=== PATIENT | male | born 1950 | race Caucasian/White ===

== ENCOUNTER → 2020-06-16 13:23 | Outpatient (BNVA) | payer MEDICARE, OTHER, SELFPAY | PROVIDERS: PCP Internal Medicine; Visit Provider Internal Medicine | DX: I25.10 Atherosclerotic heart disease of native coronary artery without angina pectoris (principal); I44.7 Left bundle-branch block, unspecified; I47.1 Supraventricular tachycardia; I48.0 Paroxysmal atrial fibrillation; I95.0 Idiopathic hypotension; Z79.01 Long term (current) use of anticoagulants; Z79.899 Other long term (current) drug therapy; I25.2 Old myocardial infarction; Z95.5 Presence of coronary angioplasty implant and graft | CPT/HCPCS: 99212 ==

== ENCOUNTER → 2020-10-19 09:18 | Outpatient (REF) | payer MEDICARE, OTHER, SELFPAY ==
--- NOTE | 2020-10-19 10:53 | ECG_ITS ---
Hook-up date: 2020-10-19 09:55:00 Duration: 47:05:00 Test Indications: ANGINA, LBBB, PVC Medications: 75701 QRS complexes 8939 Ventricular ectopics which represent 13 % of total QRS comp. 724 Supraventricular ectopics which represent 1 % of total QRS comp. * Paced QRS complexs which represent % of total QRS comp. VENTRICULAR ECTOPY 8489 Isolated 1729 Bigeminal Cycles 222 Couplets 2 Runs 6 Beats in Runs 3 Beats LONGEST at 98 BPM at 00:31:37 2020-10-20 3 Beats FASTEST at 98 BPM at 00:31:37 2020-10-20 SUPRAVENTRICULAR ECTOPY 682 Isolated 14 Couplets 4 Runs 14 Beats in Runs 5 Beats LONGEST at 90 BPM at 20:52:23 2020-10-19 3 Beats FASTEST at 100 BPM at 01:34:28 2020-10-20 HEART RATES 39 MIN at 07:23:02 2020-10-20 53 AVG 73 MAX at 10:00:42 2020-10-19 LONGEST RR 1.9360 secs at 06:08:57 2020-10-20 S-T LEVELS Channel 1 - 128 mm at 09:55:00 2020-10-19 - 128 mm at 09:55:00 2020-10-19 Channel 2 - 128 mm at 09:55:00 2020-10-19 - 128 mm at 09:55:00 2020-10-19 Channel 3 - 128 mm at 02:91:41 -- - 128 mm at 02:91:41 Underlying rhythm is sinus; Average rate 53/min with range 39-73/min; Frequent Premature ventricular complexes - 13% of total beats; variable morphology; mostly isolated, some couplets, bigeminy, longest run 3 beats; Occasional supraventricular ectopy; mostly isolated; longest run 5 beats; Chest pressure in patient dairy correlate with sinus Referred By: Delmy Ackerman Overread By: DELMY ACKERMAN
== END ==
LOC: HO.CARD 09:18
PROVIDERS: PCP Internal Medicine; Visit Provider Internal Medicine
DX: I25.119 Atherosclerotic heart disease of native coronary artery with unspecified angina pectoris (principal); I44.7 Left bundle-branch block, unspecified; I47.1 Supraventricular tachycardia; I48.0 Paroxysmal atrial fibrillation; I95.0 Idiopathic hypotension; Z79.01 Long term (current) use of anticoagulants; Z79.899 Other long term (current) drug therapy
CPT/HCPCS: 93005; 93226; 99212

== ENCOUNTER → 2020-10-22 07:40 | Outpatient (REF) | payer MEDICARE, OTHER, SELFPAY ==
--- NOTE | ~2020-10-22 | NM_ITS ---
Myocardial perfusion study Indication: Angina to evaluate for myocardial ischemia Technique: The patient was brought in for a Lexiscan perfusion study on 10/22/2020. Patient performed low-level exercise and was injected 0.4 mg of Lexiscan intravenously. Within a minute of injection, 30 mCi of sestamibi was given intravenously. Images were obtained using the SPECT gamma camera interlaced with the gating device. Images were obtained in supine position. Resting perfusion study was performed on 10/23/2020. Patient was administered 30 mCi of sestamibi intravenously at rest. Images were then obtained in supine position. Images obtained with and without CT attenuation. Total DLP 84 mGy-cm. Images were processed with the software and compared side to side in short axis, horizontal long axis and vertical long axis views. Findings: The stress perfusion study showed non attenuated images show moderately reduced uptake in the apex, moderately reduced uptake in the septum and the septum of the LV myocardium. Of the LV myocardium. Remainder is normally perfused. Attenuation corrected shows. The gated study shows normal LV systolic function with calculated LVEF of 60%. LV cavity is mildly dilated size. The gated study shows normal wall thickening and contraction of segments. Resting study shows normalize uptake on attenuated corrected the septum as well as distal septum and apex of the LV myocardium . Gating at rest reveals normal systolic wall motion with ejection fraction at 63%. The findings are consistent with septal and apical ischemia most likely in LAD territory. NM/NM maryam perf SPECT rest & str Impression: 1. Myocardial perfusion imaging study shows septal and apical ischemia 2. Gated LVEF is 60% 3. Transient ischemic dilatation present EKG is nondiagnostic for ischemia
--- NOTE | 2020-10-22 07:44 | CA_ITS ---
Acquisition Time: 2020-10-22 08:40:19 Total Exercise Time: 00:02:00 Test Indications: Abnormal ECG Medications: APIXABAN ATORVASTATIN METOPROLOL OMEPRAZOLE SL NITRO NEEDED Protocol: LEXISCAN Max HR: 093 BPM 62% of Pred: 149 BPM Max BP: 180/100 mmHG Max Work Load: 1.0 METS Pharmacological stress test using Lexiscan while sitting. Reports epigastric burning followed by chest thightness. Sx reversed with Aminophyline 75 mg IV. EKG with LBBB and PVC's non-diagnostic for ischemia. Normotensive response to test. Test reviewed with Dr. Dockery. Referred By: Addi Dockery Overread By: Malaika Beck NP
--- NOTE | 2020-10-22 07:44 | CA_ITS ---
Transthoracic Echocardiogram Patient (Last, First, Middle): Donavan iKm H Gender: Male Date of : 1950 Age: 70 Procedure Date: 10/22/2020 Procedure Type: Transthoracic Echocardiogram Location: OP Height: 177.8 cm Weight: 90.72 kg BSA: 2.09 m2 Heart Rate: bpm BP: 124 / 74 mmHg Bench Inspector: TOSHIA Referring MD: Addi Dockery MD [facility] Demonstrator: Arley Davey MD Symptoms: I20.9 - Angina pectoris, unspecified Study Quality: Fair ECG Rhythm: Sinus Conclusions: - 1. Low normal LV systolic function with LVEF of 50-55% with grade 1 diastolic dysfunction 2. Mild aortic and mitral regurgitation 3. Normal RV systolic pressure 4. No pericardial effusion Findings Procedure Information Contrast agent, definity, is being given per protocol without apparent complications. The patient receives contrast. Left Ventricle Normal left ventricular cavity size. There is normal left ventricular wall thickness. The left ventricular systolic function is low normal. The visually estimated ejection fraction is between 50-55%. There is paradoxical septal motion consistent with a left bundle branch block. Spectral Doppler is indicative of an impaired relaxation filling pattern. E/E prime ratio is <8, consistent with normal filling pressures. Evidence suggests grade I (mild) diastolic dysfunction. Right Ventricle Normal right ventricular cavity size and systolic function. Atria The left atrium is likely dilated. There is no evidence of interatrial shunt. The right atrium is normal in size. Aortic Valve The aortic valve was not well visualized. There is mild calcification of the aortic valve. There is no aortic valve stenosis. There is mild aortic valve regurgitation. Mitral Valve Normal mitral valve structure and function. There is mild mitral valve regurgitation. There is no mitral valve stenosis. Pulmonic Valve The pulmonic valve was not well visualized. Tricuspid Valve Likely normal tricuspid valve structure and function. There is mild tricuspid valve regurgitation. The right ventricular systolic pressure is normal. The right ventricular systolic pressure is 35 mmHg. There is no evidence of pulmonary hypertension. Great Vessels All visible segments of the aorta are normal in size. The pulmonary artery was not well visualized. Venous The inferior vena cava is normal in size and collapses greater than 50% with inspiration. Pericardium/Pleural There is no evidence of pericardial effusion. Prior Study Comparison Changes noted compared to prior study dated: 08/19/2019. LV systolic function is marginally reduced Measurements M-Mode Liner Measurements Normals - Women/Men AOV Cusps: 2.40 1.5-2.6 cm/m2 2D Linear Measurements IVSd: 1.25 0.6-0.9/0.6-1.0 cm LVIDd: 5.50 3.9-5.3/4.2-5.9 cm LVIDd Index: 2.63 2.4-3.2/2.2-3.1 cm/m2 LVIDs: 4.76 2.0-3.6 cm LVPWd: 1.01 0.7-1.1 cm Ao Root: 3.60 2.1-3.5 cm LA Diam: 3.80 2.7-3.8/3.0-4.0 cm LAIDs Index: 1.82 1.5-2.3 cm/m2 LV Mass: 312.95 67-162/88-224 g LV Mass Index: 149.74 43-95/49-115 g/m2 LVOT Diam: 2.00 3.0+(-)1.3 cm Mitral Valve MV Pk E: 0.56 MV PK A: 0.81 MV Decel Time: 273.00 E/A: 0.70 E'Lateral: 8.38 E'Medial: 5.00 E/E' Med: 11.10 E/E' Lat: 6.60 PHT: 80.00 MVA PHT: 2.75 Decel [place]: 2.04 Aortic Valve AoV Pk Robb: 1.37 AoV Pk Grad: 8.00 AI Pk Robb: 5.04 AI [place]: 1.81 LVOT LVOT Pk Robb: 0.95 LVOT Mn Robb: 0.65 LVOT VTI: 0.24 LVOT Pk Grad: 4.00 LVOT Mn Grad: 2.00 LVOT Diam: 2.00 LVOT Area: 3.14 Diastolic Function MV Pk E: 0.56 MV Pk A: 0.81 E/A: 0.70 E'Medial: 5.00 E/E' Med: 11.10 E' Laterial: 8.38 E/E' Lat: 6.60 Tricuspid Valve TR Pk Robb: 2.81 TR Pk Grad: 32.00 RA Press: 3.00 RVSP: 35.00 Great Vessels Aorta Ao Root-2D: 3.60 2.0-3.7 cm Ao Asc: 3.70 2.1-3.4 cm Ao Arch: 2.80 Pulmonary Valve PV Pk Robb: 1.02 Peak PV Grad: 4.00 Updated in Other Vendor System with Status of Final Arley Davey MD electronically signed on 10/22/2020 1:59:08 PM with status of Final
== END ==
LOC: HO.CARD 07:40
PROVIDERS: Visit Provider Internal Medicine
DX: I20.9 Angina pectoris, unspecified (principal)
CPT/HCPCS: 78452; 93017; 93306; A9500; J0280; J2785; Q9957

== ENCOUNTER 2020-10-28 09:11 | Outpatient (REF) | payer MEDICARE, OTHER, SELFPAY ==
[2020-10-28 10:54] LABS: Hematocrit 40.3 % (42-52); Hemoglobin 13.9 g/dl (14.0-18.0); Mean Corpuscular HGB Conc 34.5 g/dl (31.0-36.0); Mean Corpuscular Hemoglobin 33.7 pg (27.0-33.0); Mean Corpuscular Volume 97.8 fL (80-98); Mean Platelet Volume 11.8 fL (9.4-12.4); Platelet Count 125 X10*3/uL (160-400); Red Blood Count 4.12 X10*6/uL (4.60-5.80); Red Cell Distribution Width 13.4 % (11.0-16.0); White Blood Count 6.5 X10*3/uL (4.8-10.8)
[2020-10-28 10:55] LABS: INTERNATIONAL NORM RATIO 1.5 (0.9-1.1); Prothrombin Time 18.2 SEC (10.8-13.0)
[2020-10-28 11:00] LABS: Anion Gap 10 (12-20); Carbon Dioxide 31 mmol/L (22-29); Chloride 106 mmol/L (96-108); Estimated Glomerular Filt Rate > 60; Glucose Random 171 mg/dL (60-115); Potassium 4.7 mmol/L (3.3-5.1); Sodium 142 mmol/L (135-145)
[2020-10-28 11:03] LABS: Blood Urea Nitrogen 20 mg/dL (9-16); Calcium 8.9 mg/dL (8.4-10.2)
== END 2020-10-28 09:12 | disposition home or self-care (01) ==
LOC: HO.LAB 09:11
PROVIDERS: PCP Internal Medicine; Visit Provider Internal Medicine
DX: I25.119 Atherosclerotic heart disease of native coronary artery with unspecified angina pectoris (principal); I44.7 Left bundle-branch block, unspecified; I48.0 Paroxysmal atrial fibrillation; I47.1 Supraventricular tachycardia; I10 Essential (primary) hypertension; I95.0 Idiopathic hypotension; E78.5 Hyperlipidemia, unspecified; Z98.61 Coronary angioplasty status; Z79.01 Long term (current) use of anticoagulants; Z79.899 Other long term (current) drug therapy
CPT/HCPCS: 36415; 80048; 85027; 85610; 99212

== ENCOUNTER → 2020-12-03 08:54 | Outpatient (BNVA) | payer MEDICARE, OTHER, SELFPAY | PROVIDERS: PCP Internal Medicine; Visit Provider Internal Medicine | DX: I25.10 Atherosclerotic heart disease of native coronary artery without angina pectoris (principal); I44.7 Left bundle-branch block, unspecified; I47.1 Supraventricular tachycardia; I48.0 Paroxysmal atrial fibrillation; I95.0 Idiopathic hypotension; Z95.1 Presence of aortocoronary bypass graft | CPT/HCPCS: 93005; 99212 ==

== ENCOUNTER → 2020-12-10 07:32 | Outpatient (REF) | payer MEDICARE, OTHER, SELFPAY ==
--- NOTE | 2020-12-10 07:35 | CA_ITS ---
Transthoracic Echocardiogram Patient (Last, First, Middle): Donavan Kim H Gender: Male Date of : 1950 Age: 70 Procedure Date: 12/10/2020 Procedure Type: Transthoracic Echocardiogram Location: OP Height: 177.8 cm Weight: 84.82 kg BSA: 2.03 m2 Heart Rate: bpm BP: 122 / 76 mmHg Rate Setter: JARED Referring MD: Addi Dockery MD Passenger Car Conductor: Arley Davey MD Symptoms: I25.10 - Atherosclerotic heart disease of [place] coronary... Study Quality: Fair ECG Rhythm: Sinus Conclusions: - 1. Normal LV systolic function with impaired relaxation filling pattern 2. Mildly dilated left atrium 3. Mild aortic and mild mitral regurgitation next 3. Normal RV systolic pressure 4. No pericardial effusion Findings Procedure Information Contrast agent, definity, is being given per protocol without apparent complications. Left Ventricle Normal left ventricular size, thickness, and systolic function. The visually estimated ejection fraction is between 55-60%. There is paradoxical septal motion consistent with a left bundle branch block. Spectral Doppler is indicative of an impaired relaxation filling pattern. E/E prime ratio is between 8 and 15 consistent with indeterminate filling pressures. Right Ventricle Normal right ventricular cavity size and systolic function. Atria The left atrium is mildly dilated. There is no evidence of interatrial shunt. The right atrium is normal in size. Aortic Valve There is mild calcification of the aortic valve. There is mild thickening of the aortic valve. There is no aortic valve stenosis. There is mild aortic valve regurgitation. Mitral Valve There is mild anterior and posterior mitral leaflet thickening. There is mild mitral annular calcification. There is mild mitral valve regurgitation. There is no mitral valve stenosis. Pulmonic Valve The pulmonic valve was not well visualized. Tricuspid Valve Likely normal tricuspid valve structure and function. There is mild tricuspid valve regurgitation. The right ventricular systolic pressure is normal. The right ventricular systolic pressure is 24 mmHg. Normal right atrial pressure. There is no evidence of pulmonary hypertension. Great Vessels All visible segments of the aorta are normal in size. The pulmonary artery was not well visualized. Moderate plaque is seen in the sino tubular ridge. Venous The inferior vena cava is normal in size and collapses greater than 50% with inspiration. Pericardium/Pleural There is no evidence of pericardial effusion. Prior Study Comparison Changes noted compared to prior study dated: 10/22/2020. LV systolic function is marginally improved Measurements 2D Linear Measurements IVSd: 0.97 0.6-0.9/0.6-1.0 cm LVIDd: 4.51 3.9-5.3/4.2-5.9 cm LVIDd Index: 2.22 2.4-3.2/2.2-3.1 cm/m2 LVIDs: 3.40 2.0-3.6 cm LVPWd: 1.27 0.7-1.1 cm Ao Root: 3.30 2.1-3.5 cm LA Diam: 3.70 2.7-3.8/3.0-4.0 cm LAIDs Index: 1.82 1.5-2.3 cm/m2 LV Mass: 223.74 67-162/88-224 g LV Mass Index: 110.21 43-95/49-115 g/m2 LVOT Diam: 2.40 3.0+(-)1.3 cm 2D Systolic Function EF 2C: 67.10 >55% Mitral Valve MV Pk E: 0.49 MV PK A: 0.56 MV Decel Time: 227.00 E/A: 0.90 E'Lateral: 7.72 E'Medial: 3.81 E/E' Med: 12.90 E/E' Lat: 6.40 PHT: 67.00 MVA PHT: 3.28 Decel [place]: 2.21 Aortic Valve AoV Pk Robb: 1.43 AoV Pk Grad: 8.00 AI Pk Robb: 4.72 AI [place]: 2.35 LVOT LVOT Pk Robb: 0.98 LVOT Mn Robb: 0.65 LVOT VTI: 0.17 LVOT Pk Grad: 4.00 LVOT Mn Grad: 2.00 LVOT Diam: 2.40 LVOT Area: 4.52 Diastolic Function MV Pk E: 0.49 MV Pk A: 0.56 E/A: 0.90 E'Medial: 3.81 E/E' Med: 12.90 E' Laterial: 7.72 E/E' Lat: 6.40 Tricuspid Valve TR Pk Robb: 2.31 TR Pk Grad: 21.00 RA Press: 3.00 RVSP: 24.00 Great Vessels Aorta Ao Root-2D: 3.30 2.0-3.7 cm Ao Asc: 3.60 2.1-3.4 cm Updated in Other Vendor System with Status of Final Arley Davey MD electronically signed on 12/11/2020 3:36:29 PM with status of Final
== END ==
LOC: HO.CARD 07:32
PROVIDERS: Visit Provider Internal Medicine
DX: I25.10 Atherosclerotic heart disease of native coronary artery without angina pectoris (principal); Z95.1 Presence of aortocoronary bypass graft
CPT/HCPCS: 93306; Q9957

== ENCOUNTER → 2021-02-04 09:15 | Outpatient (BNVA) | payer MEDICARE, OTHER, SELFPAY | PROVIDERS: PCP Internal Medicine; Visit Provider Internal Medicine | DX: I25.10 Atherosclerotic heart disease of native coronary artery without angina pectoris (principal); I44.7 Left bundle-branch block, unspecified; I47.1 Supraventricular tachycardia; I48.0 Paroxysmal atrial fibrillation; I95.0 Idiopathic hypotension; Z95.1 Presence of aortocoronary bypass graft | CPT/HCPCS: 99212 ==

== ENCOUNTER → 2021-08-05 13:08 | Outpatient (BNVA) | payer MEDICARE, OTHER, SELFPAY ==
[2021-01-12 08:55] VITALS: BMI 27.5
[2021-03-16 11:20] VITALS: BP 138/70
== END ==
PROVIDERS: PCP Internal Medicine; Visit Provider Internal Medicine
DX: I25.10 Atherosclerotic heart disease of native coronary artery without angina pectoris (principal); I44.7 Left bundle-branch block, unspecified; I47.1 Supraventricular tachycardia; I95.0 Idiopathic hypotension; I48.0 Paroxysmal atrial fibrillation; Z95.1 Presence of aortocoronary bypass graft
CPT/HCPCS: 99212

== ENCOUNTER 2021-12-21 12:25 | Emergency (ER) | payer MEDICARE, OTHER, SELFPAY ==
[2021-12-21 13:15] VITALS: BP 131/63; PULSE 65; RESP 19; TEMP 36.6; O2SAT 98; BMI 25.5
[2021-12-21 14:26] LABS: MANUAL DIFF FLAG NO
[2021-12-21 14:28] LABS: Basophils Percent Auto 0.2 % (0-2); Eosinophils Absolute Auto 0.1 X10*3/uL (0.0-0.4); Eosinophils Percent Auto 0.9 % (0-4); Hematocrit 25.5 % (42.0-52.0); Hemoglobin 8.5 g/dl (14.0-18.0); Imm Gran Abs Auto 0.02 X10*3/uL (0.00-0.03); Imm Gran Pct Auto 0.3 % (0.0-0.4); Lymphocytes Absolute Auto 0.6 X10*3/uL (1.2-4.9); Lymphocytes Percent Auto 10.4 % (20-40); Mean Corpuscular HGB Conc 33.3 g/dl (31.0-36.0); Mean Corpuscular Hemoglobin 33.7 pg (27.0-33.0); Mean Corpuscular Volume 101.2 fL (80.0-98.0); Mean Platelet Volume 10.1 fL (9.4-12.4); Monocytes Absolute Auto 0.5 X10*3/uL (0.1-1.2); Monocytes Percent Auto 8.2 % (2-11); Neutrophils Absolute Auto 4.7 x10*3/uL (2.0-8.3); Platelet Count 139 X10*3/uL (160-400); Red Blood Count 2.52 X10*6/uL (4.60-5.80); Red Cell Distribution Width 14.3 % (11.0-16.0); White Blood Count 5.9 X10*3/uL (4.8-10.8)
[2021-12-21 14:36] LABS: INTERNATIONAL NORM RATIO 1.6 (0.9-1.1); Prothrombin Time 18.3 SEC (9.9-13.0)
[2021-12-21 15:17] LABS: Anion Gap 11 (12-20); Blood Urea Nitrogen 17 mg/dL (9-16); Carbon Dioxide 27 mmol/L (22-29); Chloride 109 mmol/L (96-108); Creatinine Clr Calc Pharmacy 88.3; Estimated Glomerular Filt Rate > 60; Glucose Random 156 mg/dL (60-115); Potassium 4.7 mmol/L (3.3-5.1); Sodium 142 mmol/L (135-145)
[2021-12-21 20:23] VITALS: BP 118/60; PULSE 68; RESP 18; TEMP 36.4; O2SAT 95
--- NOTE | 2021-12-21 20:58 | ED_ITS ---
HPI - General Adult General Chief complaint: General Medical <NIMO Fournier - Last Filed: 12/21/21 22:59> Stated complaint: Dental Bleeding Extractions 12/14/21 <NIMO Fournier - Last Filed: 12/21/21 22:59> Time Seen by Provider: 12/21/21 12:42 <NIMO Fournier - Last Filed: 12/21/21 22:59> Source: patient <NIMO Fournier - Last Filed: 12/21/21 22:59> Mode of arrival: ambulatory <NIMO Fournier - Last Filed: 12/21/21 22:59> Limitations: no limitations <NIMO Fournier - Last Filed: 12/21/21 22:59> History of Present Illness HPI narrative: This is a 71-year-old male currently anticoagulated on Eliquis past medical history significant for CAD, atrial fibrillation presenting to the emergency department with bleeding gums x3 days. Patient tells me on December 15 he had multiple teeth extracted and he had dentures placed to his upper gums, he tells me everything was fine the 1st few days.On Monday patient reports bleeding from upper gums, he tells me that he has not been wearing his dentures since. Patient reports intermittent bleeding since Monday, he is bleeding bright red blood at times with clots, patient tells me it is a large amount of blood. He tells me he is now feeling slightly lightheaded with positional changes. He denies fevers, chills, chest pain, shortness of breath, nausea, vomiting, vision changes, headache. Patient tells me that for this procedure he never stopped his Eliquis. <NIMO Fournier - Last Filed: 12/21/21 22:59> Onset (ago): day(s) (3) <NIMO Fournier - Last Filed: 12/21/21 22:59> Location: mouth <NIMO Fournier Last Filed: 12/21/21 22:59> Radiation: non-radiation <NIMO Fournier Last Filed: 12/21/21 22:59> Severity: severe <NIMO Fournier Last Filed: 12/21/21 22:59> Relieving factors: none <NIMO Fournier Last Filed: 12/21/21 22:59> Exacerbating factors: none <NIMO Fournier Last Filed: 12/21/21 22:59> Associated symptoms: weakness <NIMO Fournier Last Filed: 12/21/21 22:59> Treatments prior to arrival: none <NIMO Fournier Last Filed: 12/21/21 22:59> Related Data Home medications: Home Medications Medication Instructions Recorded Confirmed allopurinol 100 mg tablet 200 mg PO DAILY 06/16/20 08/05/21 apixaban 5 mg tablet 5 mg PO BID 06/16/20 08/05/21 atorvastatin 80 mg tablet 80 mg PO DAILY 06/16/20 08/05/21 metoprolol succinate 50 mg 150 mg PO DAILY 06/16/20 08/05/21 tablet,extended release 24 hr nitroglycerin 0.4 mg sublingual mg SUBLINGUAL 06/16/20 08/05/21 tablet omeprazole 40 mg capsule,delayed 40 mg PO DAILY 06/16/20 08/05/21 release tamsulosin 0.4 mg capsule 0.4 mg PO BEDTIME 06/16/20 08/05/21 aspirin 81 mg tablet,delayed 81 mg PO DAILY 12/03/20 08/05/21 release multivitamin 1 tab PO DAILY 12/03/20 08/05/21 omega-3 fatty acids 1,000 mg 1,000 mg PO DAILY 12/03/20 08/05/21 capsule (Fish Oil Concentrate) <NIMO Fournier Last Filed: 12/21/21 22:59> Allergies/adverse reactions: Allergies Allergy/AdvReac Type Severity Reaction Status Date / Time No Known Allergies Allergy Mild NOT Verified 08/05/21 13:26 APPLICABLE <NIMO Fournier Last Filed: 12/21/21 22:59> Review of Systems Review of Systems: Constitutional : No Weight loss, No Fever, No Chills, No Fatigue, No Malaise ENT/Mouth : No sore throat, No Rhinorrhea Eyes: No Eye Pain, No Swelling, No Redness Cardiovascular : No Chest Pain, No SOB, No Dyspnea on Exertion, No Orthopnea, No Edema, No Palpitations Respiratory : No Cough, No Sputum, No Wheezing Gastrointestinal : No Nausea, No Vomiting, No Diarrhea, No Constipation, No abdominal Pain, No Hematochezia, No Melena Genitourinary : No Dysuria, No Urinary Frequency, No Hematuria, Musculoskeletal : No joint pain, No Myalgias, No Joint Swelling Skin : No Skin Lesions, No rash Neuro : No Weakness, No Numbness, + Dizziness, No Headache Psych : No Anxiety/Panic, No Depression Heme/Lymph: No Bruising, + Bleeding,No Lymphadenopathy All other systems reviewed and are negative <NIMO Fournier - Last Filed: 12/21/21 22:59> Yes all other systems are reviewed and are negative <NIMO Fournier - Last Filed: 12/21/21 22:59> PMFSH Past Medical History Attestation statement: The following information was validated with the patient. <NIMO Fournier - Last Filed: 12/21/21 22:59> Source: old records reviewed and nursing notes reviewed <NIMO Fournier - Last Filed: 12/21/21 22:59> Medical History: Medical History (Updated 12/21/21 @ 22:23 by NIMO Fournier) Atherosclerotic cardiovascular disease Essential hypertension Hyperlipidemia, unspecified Idiopathic hypotension Left bundle branch block Monoclonal gammopathy PAF (paroxysmal atrial fibrillation) Prostate cancer SVT (supraventricular tachycardia) <NIMO Fournier - Last Filed: 12/21/21 22:59> Surgical History: Surgical History History of appendectomy History of coronary angioplasty History of tonsillectomy Status post coronary artery bypass graft <NIMO Fournier - Last Filed: 12/21/21 22:59> Family History Family History: Family History Father CVD (cardiovascular disease) Mother Diabetes <NIMO Fournier - Last Filed: 12/21/21 22:59> Social History Social History: Social History Patient Tobacco Use Status: Never used Tobacco Second Hand Smoke Exposure: Yes Advance Directives: No Advance Directives Information Provided: No <NIMO Fournier - Last Filed: 12/21/21 22:59> Physical Exam ED Vital Signs: Vital Signs - 24 hr 12/21/21 13:15 12/21/21 20:23 Temperature 98 F 97.5 F Pulse Rate 65 68 Respiratory Rate 19 18 Blood Pressure 131/63 118/60 Pulse Oximetry 98 95 BMI result Body Mass Index 25.5 VSS <NIMO Fournier - Last Filed: 12/21/21 22:59> Appearance: Alert.? Oriented X3.? No acute distress.? Head: Normocephalic, atraumatic, no step-offs or deformities Eyes: Pupils equal, round and reactive to light.? ENT: Pharynx normal.?+ active bleeding from upper gums Neck: Normal inspection.? Neck supple.? CVS: Normal heart rate and rhythm.? Pulses normal.? Respiratory: No respiratory distress.? Breath sounds normal.? Abdomen: Soft and nontender.? Skin: Skin warm and dry. + pallor thoroughout Normal skin turgor.? Extremities: No lower extremity edema.? No calf ttp. 5/5 strength to bilateral upper and lower extremities Back: No midline tenderness, no C-spine tenderness, full range of motion, no CVA tenderness bilaterally Neuro: Oriented X 3.? No motor deficit.? No sensory deficit. CN 2-12 intact <NIMO Fournier - Last Filed: 12/21/21 22:59> Course Reevaluation(s) Reevaluation #1: Patient's CBC significant for anemia, chemistry with no acute electrolyte abnormalities requiring intervention. Bleeding controlled at this time. I did speak to from [facility] who tells me that patient had a full arch/maxillary tooth extraction and dentures were placed. He was advised to keep the dentures in for 1 day/24 hours. According to dentist she tells me that patient return to [facility] today with bleeding, bruising, large clots to the left upper gums, patient mentions that he left his dentures in for 2-3 days, he never stopped his Eliquis for this procedure. She advised him to come into the emergency department to be evaluated. She reports no interest surgical complications. <NIMO Fournier - Last Filed: 12/21/21 22:59> Time: 22:05 <NIMO Fournier - Last Filed: 12/21/21 22:59> Reevaluation #2: Spoke to my attending, this patient will likely benefit from transfer to hospital with higher level of care as we do not have oral maxillofacial here. Spoke to [facility] who referred me to [facility] as they do not take any dental cases they tell me on the phone. Call out to [facility] made at this time pending callback. <NIMO Fournier - Last Filed: 12/21/21 22:59> Time: 22:14 <NIMO Fournier - Last Filed: 12/21/21 22:59> Reevaluation #3: [facility] closed to transfers due to capacity. Will try [place] at this time <NIMO Fournier - Last Filed: 12/21/21 22:59> Time: 22:42 <NIMO Fournier - Last Filed: 12/21/21 22:59> Additional Reevaluation(s): Patient was accepted at [facility] ED Dr. Akhtar. Patient agrees to transfer. <NIMO Fournier - Last Filed: 12/21/21 22:59> Medical Decision Making MDM Narrative Medical decision making narrative: 2100 71-year-old male anticoagulated on Eliquis presents with bleeding to upper gums x3 days status post tooth extraction and placement of dentures. Patient tells me had this done at [facility] in [place]. Patient did not stop his Eliquis for this procedure. Upon physical examination there is a large amount of blood in patient's mouth coming from the upper gums, left side. Images attached in the chart. Regular rate and rhythm. Lungs clear. Abdomen soft nontender nondistended. Pupils equal round and reactive to light. Neuro exam nonfocal. Plan at this time is to apply Surgicel to the area and hold firm pressure for 20-30 minutes. Then re-evaluate patient. Patient has also been here for over 8 hours therefore a repeat CBC and a type and screen will be obtained as patient may require blood transfusion. <NIMO Fournier - Last Filed: 12/21/21 22:59> Medical Records Medical records reviewed: Yes I reviewed the patient's medical records. <NIMO Fournier - Last Filed: 12/21/21 22:59> Lab Data Lab results reviewed: Yes I reviewed the patient's lab results. <NIMO Fournier - Last Filed: 12/21/21 22:59> Result diagrams: : 12/21/21 21:28 12/21/21 14:20 <NIMO Fournier - Last Filed: 12/21/21 22:59> Labs: Lab Results 12/21/21 12/21/21 12/21/21 Range/Units 10:28 14:20 14:20 WBC 5.9 (4.8-10.8) X10*3/uL RBC 2.52 L (4.60-5.80) X10*6/uL Hgb 8.5 L (14.0-18.0) g/dl Hct 25.5 L (42.0-52.0) % MCV 101.2 H (80.0-98.0) fL MCH 33.7 H (27.0-33.0) pg MCHC 33.3 (31.0-36.0) g/dl RDW 14.3 (11.0-16.0) % Plt Count 139 L (160-400) X10*3/uL MPV 10.1 (9.4-12.4) fL Immature Gran % (Auto) 0.3 (0.0-0.4) % Neut % (Auto) 80.0 H (45-73) % Lymph % (Auto) 10.4 L (20-40) % [place] % (Auto) 8.2 (2-11) % Eos % (Auto) 0.9 (0-4) % Baso % (Auto) 0.2 (0-2) % Lymph # (Auto) 0.6 L (1.2-4.9) X10*3/uL [place] # (Auto) 0.5 (0.1-1.2) X10*3/uL Eos # (Auto) 0.1 (0.0-0.4) X10*3/uL Baso # (Auto) 0.0 (0.0-0.2) X10*3/uL Abs Immat Gran (auto) 0.02 (0.00-0.03) X10*3/uL Absolute Neuts (auto) 4.7 (2.0-8.3) x10*3/uL Absolute Nucleated RBC 0.000 (0.0-0.012) X10*3/uL Nucleated RBC % (auto) 0.0 (0.0-0.2) /100WBC PT 18.3 H (9.9-13.0) SEC INR 1.6 H (0.9-1.1) Sodium (135-145) mmol/L Potassium (3.3-5.1) mmol/L Chloride (96-108) mmol/L Carbon Dioxide (22-29) mmol/L Anion Gap (12-20) BUN (9-16) mg/dL Creatinine (0.5-1.4) mg/dL Estim Creat Clear Calc Estimated GFR Random Glucose (60-115) mg/dL Calcium (8.4-10.2) mg/dL COVID-19 (MISHA) Negative (Negative) COVID-19 Clin Com See Note Blood Type Antibody Screen 12/21/21 12/21/21 12/21/21 Range/Units 14:20 21:28 22:05 WBC 6.6 (4.8-10.8) X10*3/uL RBC 2.59 L (4.60-5.80) X10*6/uL Hgb 8.7 L (14.0-18.0) g/dl Hct 25.8 L (42.0-52.0) % MCV 99.6 H (80.0-98.0) fL MCH 33.6 H (27.0-33.0) pg MCHC 33.7 (31.0-36.0) g/dl RDW 14.3 (11.0-16.0) % Plt Count 136 L (160-400) X10*3/uL MPV 10.2 (9.4-12.4) fL Immature Gran % (Auto) 0.8 H (0.0-0.4) % Neut % (Auto) 75.5 H (45-73) % Lymph % (Auto) 11.6 L (20-40) % [place] % (Auto) 10.5 (2-11) % Eos % (Auto) 1.4 (0-4) % Baso % (Auto) 0.2 (0-2) % Lymph # (Auto) 0.8 L (1.2-4.9) X10*3/uL [place] # (Auto) 0.7 (0.1-1.2) X10*3/uL Eos # (Auto) 0.1 (0.0-0.4) X10*3/uL Baso # (Auto) 0.0 (0.0-0.2) X10*3/uL Abs Immat Gran (auto) 0.05 H (0.00-0.03) X10*3/uL Absolute Neuts (auto) 5.0 (2.0-8.3) x10*3/uL Absolute Nucleated RBC 0.000 (0.0-0.012) X10*3/uL Nucleated RBC % (auto) 0.0 (0.0-0.2) /100WBC PT (9.9-13.0) SEC INR (0.9-1.1) Sodium 142 (135-145) mmol/L Potassium 4.7 (3.3-5.1) mmol/L Chloride 109 H (96-108) mmol/L Carbon Dioxide 27 (22-29) mmol/L Anion Gap 11 L (12-20) BUN 17 H (9-16) mg/dL Creatinine 0.78 (0.5-1.4) mg/dL Estim Creat Clear Calc 88.3 Estimated GFR > 60 Random Glucose 156 H (60-115) mg/dL Calcium 9.0 (8.4-10.2) mg/dL COVID-19 (MISHA) (Negative) COVID-19 Clin Com Blood Type A Positive Antibody Screen NEGATIVE <NIMO Fournier - Last Filed: 12/21/21 22:59> Critical Care Time Critical Care Time Critical Care Time: No <NIMO Fournier Last Filed: 12/21/21 22:59> Discharge Plan Discharge Clinical Impression: Bleeding gums, Postoperative anemia due to acute blood loss <NIMO Fournier - Last Filed: 12/21/21 22:59> Patient Disposition: [facility] <NIMO Fournier - Last Filed: 12/21/21 22:59> Transfer Details: Patient will be transferred to [facility] Emergency Department to the service of . <NIMO Fournier - Last Filed: 12/21/21 22:59> Prescriptions: No Action tamsulosin 0.4 mg capsule 0.4 mg PO BEDTIME 0RF Eliquis 5 mg tablet 5 mg PO BID 0RF metoprolol succinate 50 mg tablet extended release 24 hr 150 mg PO DAILY 0RF allopurinol 100 mg tablet 200 mg PO DAILY 0RF nitroglycerin 0.4 mg tablet, sublingual sublingual 0RF omeprazole 40 mg capsule,delayed release(DR/EC) 40 mg PO DAILY 0RF atorvastatin 80 mg tablet 80 mg PO DAILY 0RF aspirin 81 mg tablet,delayed release (DR/EC) 81 mg PO DAILY 0RF omega-3 fatty acids [Fish Oil Concentrate] 1,000 mg capsule 1,000 mg PO DAILY 0RF multivitamin Tablet 1 tab PO DAILY 0RF <NIMO Fournier - Last Filed: 12/21/21 22:59>
[2021-12-21] MEDS: 0.9 % Sodium Chloride 1,000 ML 999 ML IV (21:32)
[2021-12-21 21:34] LABS: Basophils Percent Auto 0.2 % (0-2); Eosinophils Absolute Auto 0.1 X10*3/uL (0.0-0.4); Eosinophils Percent Auto 1.4 % (0-4); Hematocrit 25.8 % (42.0-52.0); Hemoglobin 8.7 g/dl (14.0-18.0); Imm Gran Abs Auto 0.05 X10*3/uL (0.00-0.03); Imm Gran Pct Auto 0.8 % (0.0-0.4); Lymphocytes Absolute Auto 0.8 X10*3/uL (1.2-4.9); Lymphocytes Percent Auto 11.6 % (20-40); MANUAL DIFF FLAG NO; Mean Corpuscular HGB Conc 33.7 g/dl (31.0-36.0); Mean Corpuscular Hemoglobin 33.6 pg (27.0-33.0); Mean Corpuscular Volume 99.6 fL (80.0-98.0); Mean Platelet Volume 10.2 fL (9.4-12.4); Monocytes Absolute Auto 0.7 X10*3/uL (0.1-1.2); Monocytes Percent Auto 10.5 % (2-11); Neutrophils Percent Auto 75.5 % (45-73); Platelet Count 136 X10*3/uL (160-400); Red Blood Count 2.59 X10*6/uL (4.60-5.80); Red Cell Distribution Width 14.3 % (11.0-16.0); White Blood Count 6.6 X10*3/uL (4.8-10.8)
--- NOTE | 2021-12-21 21:40 | PC.NURSE ---
pt upper left mouth bleeding s/p dental prodcedure. bleeding upon arrival, no c/o pain, surgicell applied. pt holding pressure to wound site
[2021-12-21 22:53] LABS: COVID-19 Test Negative (Negative)
--- NOTE | 2021-12-21 23:15 | PC.NURSE ---
at bedside, pt in no distress
[2021-12-21 23:28] VITALS: BP 166/73; PULSE 72; RESP 18; TEMP 36.4; O2SAT 96
--- NOTE | 2021-12-21 23:39 | PC.NURSE ---
report called to truong at
--- NOTE | 2021-12-21 23:44 | PC.NURSE ---
pt ambulated to BR with steady gait, no c/ dizziness
--- NOTE | 2021-12-22 00:08 | PC.NURSE ---
pt reports that one of the clotted wound sites began bleeding again, PA notified, Surgicell applied to actively bleeding area- left upper mouth
[2021-12-22] MEDS: 0.9 % Sodium Chloride 1,000 ML 999 ML IV (00:13)
[2021-12-22] MEDS: Tranexamic Acid 1,000 MG in 0.9 % Sodium Chloride 50 ML 360 MG IV (00:20)
--- NOTE | 2021-12-22 00:20 | PC.NURSE ---
Addendum entered by Geo Medellin 12/22/21 01:38: PA administered 500 mg TXA; gauze soaked in medication Original Note: PA administered TXA by the topical route, soaked and gauze and held against open area
[2021-12-22 00:29] VITALS: PULSE 76; RESP 16; O2SAT 97
--- NOTE | 2021-12-22 00:31 | PC.NURSE ---
pt reports bleeding through surgicell that was being help, removed by Pt. PA aware, another surgicel given to pt, positioned over open bleeding area, and pt instructed to hold light pressure
[2021-12-22 00:36] LABS: MANUAL DIFF FLAG NO
[2021-12-22 00:38] LABS: Basophils Percent Auto 0.3 % (0-2); Eosinophils Absolute Auto 0.1 X10*3/uL (0.0-0.4); Eosinophils Percent Auto 1.5 % (0-4); Hematocrit 23.9 % (42.0-52.0); Hemoglobin 7.8 g/dl (14.0-18.0); Imm Gran Abs Auto 0.02 X10*3/uL (0.00-0.03); Imm Gran Pct Auto 0.3 % (0.0-0.4); Lymphocytes Absolute Auto 0.7 X10*3/uL (1.2-4.9); Lymphocytes Percent Auto 10.8 % (20-40); Mean Corpuscular HGB Conc 32.6 g/dl (31.0-36.0); Mean Corpuscular Hemoglobin 33.6 pg (27.0-33.0); Mean Platelet Volume 10.4 fL (9.4-12.4); Monocytes Absolute Auto 0.7 X10*3/uL (0.1-1.2); Monocytes Percent Auto 9.9 % (2-11); Neutrophils Absolute Auto 5.1 x10*3/uL (2.0-8.3); Neutrophils Percent Auto 77.2 % (45-73); Platelet Count 121 X10*3/uL (160-400); Red Blood Count 2.32 X10*6/uL (4.60-5.80); Red Cell Distribution Width 14.1 % (11.0-16.0); White Blood Count 6.6 X10*3/uL (4.8-10.8)
[2021-12-22 00:57] VITALS: BP 133/63; PULSE 74; RESP 17; O2SAT 93
[2021-12-22 00:58] VITALS: BP 133/63; PULSE 76; RESP 16; TEMP 36.4
[2021-12-22 01:19] VITALS: BP 143/68; PULSE 76; RESP 16; TEMP 36.6
--- NOTE | 2021-12-22 01:19 | PC.NURSE ---
pt replaced gauze in mouth, moderate amount of blood, replaced with new piece of gauze. son at bedside, transfusion at 15 min oscar with no adverse findings
--- NOTE | 2021-12-22 01:30 | PC.NURSE ---
blood being transfused, VS WNL, pt has no s/sx of adverse reaction. pt currently being transferred to [facility] for dental trauma. ALS crew assumed responsibility of blood transfusion.
[2021-12-22 01:31] VITALS: PULSE 76; RESP 16; O2SAT 95
== END 2021-12-22 01:39 | disposition short-term general hospital (02) ==
PROVIDERS: Physician Assistant; Emergency Provider Emergency Medicine; PCP Internal Medicine
DX: L76.22 Postprocedural hemorrhage of skin and subcutaneous tissue following other procedure (principal); D62 Acute posthemorrhagic anemia; R53.1 Weakness; E78.5 Hyperlipidemia, unspecified; I48.0 Paroxysmal atrial fibrillation; Z79.01 Long term (current) use of anticoagulants; Z20.822 Contact with and (suspected) exposure to COVID-19
CPT/HCPCS: 36415; 36430; 80048; 85025; 85610; 86850; 86900; 86901; 86923; 87635; 96360; 96361; 96374; 99285; P9016

== ENCOUNTER → 2022-02-21 10:07 | Outpatient (BNVA) | payer MEDICARE, OTHER, SELFPAY ==
[2021-01-12 08:55] VITALS: BMI 27.5
[2021-03-16 11:20] VITALS: BP 138/70
== END ==
PROVIDERS: PCP Internal Medicine; Visit Provider Internal Medicine
DX: I25.10 Atherosclerotic heart disease of native coronary artery without angina pectoris (principal); I44.7 Left bundle-branch block, unspecified; I48.0 Paroxysmal atrial fibrillation; I47.1 Supraventricular tachycardia; I95.0 Idiopathic hypotension; D64.9 Anemia, unspecified; Z79.01 Long term (current) use of anticoagulants; Z79.899 Other long term (current) drug therapy; Z95.1 Presence of aortocoronary bypass graft
CPT/HCPCS: 99212

== ENCOUNTER 2022-06-02 13:27 | Emergency (ER) | payer MEDICARE, OTHER, SELFPAY ==
--- NOTE | ~2022-06-02 | XR_ITS ---
EXAMINATION: XR CHEST CLINICAL INFORMATION: Shortness of breath, fatigue. COMPARISON: 09/26/[address] scan dated 10/05/2017. TECHNIQUE: Frontal view of the chest was obtained. FINDINGS: There has been interval change in appearance of the cardiac silhouette with interval decrease in size. New multilevel sternotomy wires are intact. The lungs are clear. The heart and mediastinal structures are unremarkable. XR/XR chest 1V IMPRESSION: Interval decrease in size of the cardiac silhouette compared the previous study. This could be postsurgical given the sternotomy wires. No definitive acute abnormality. If symptoms persist or worsen, short-term repeat radiographic follow-up including a lateral view is recommended as indicated.
[2022-06-02 13:35] VITALS: BP 136/70; PULSE 85; RESP 18; TEMP 36.7; O2SAT 97; BMI 22.9
--- NOTE | 2022-06-02 13:38 | ECG_ITS ---
Test Reason : sob Blood Pressure : / mmHG Vent. Rate : 074 BPM Atrial Rate : 074 BPM P-R Int : 188 ms QRS Dur : 144 ms QT Int : 404 ms P-R-T Axes : 021 -38 121 degrees QTc Int : 448 ms Sinus rhythm with occasional Premature ventricular complexes Left axis deviation Left bundle branch block Abnormal ECG When compared with ECG of 17-JAN-2012 08:57, Premature ventricular complexes are now Present Left bundle branch block is now Present Referred By: Bailey Rosa Electronically Signed By:KLEVER VILLARREAL MD
--- NOTE | 2022-06-02 13:40 | ED.SOB ---
HPI - SOB/Dyspnea General Chief Complaint: Dyspnea Stated Complaint: sob, chronic cough Related Data Home Medications Medication Instructions Recorded Confirmed allopurinol 100 mg tablet 200 mg PO DAILY 06/16/20 02/21/22 apixaban 5 mg tablet 5 mg PO BID 06/16/20 02/21/22 atorvastatin 80 mg tablet 80 mg PO DAILY 06/16/20 02/21/22 metoprolol succinate 50 mg 150 mg PO DAILY 06/16/20 02/21/22 tablet,extended release 24 hr nitroglycerin 0.4 mg sublingual mg sublingual 06/16/20 02/21/22 tablet omeprazole 40 mg capsule,delayed 40 mg PO DAILY 06/16/20 02/21/22 release tamsulosin 0.4 mg capsule 0.4 mg PO BEDTIME 06/16/20 02/21/22 aspirin 81 mg tablet,delayed 81 mg PO DAILY 12/03/20 02/21/22 release multivitamin 1 tab PO DAILY 12/03/20 02/21/22 omega-3 fatty acids 1,000 mg 1,000 mg PO DAILY 12/03/20 02/21/22 capsule (Fish Oil Concentrate) bicalutamide 50 mg tablet 50 mg PO DAILY 02/21/22 02/21/22 Allergies Allergy/AdvReac Type Severity Reaction Status Date / Time No Known Allergies Allergy Mild NOT Verified 06/02/22 13:34 APPLICABLE [facility] Past Medical History Medical History (Updated 06/03/22 @ 17:06 by NIMO Harding) Atherosclerotic cardiovascular disease Essential hypertension Hyperlipidemia, unspecified Idiopathic hypotension Left bundle branch block Monoclonal gammopathy PAF (paroxysmal atrial fibrillation) Prostate cancer SVT (supraventricular tachycardia) Surgical History History of appendectomy History of coronary angioplasty History of tonsillectomy Status post coronary artery bypass graft Family History Family History Father CVD (cardiovascular disease) Mother Diabetes Social History Social History Patient Tobacco Use Status: Never used Tobacco Second Hand Smoke Exposure: Yes Advance Directives: No Advance Directives Information Provided: No Physical Exam Vital Signs: Vital Signs: Last Vital Signs Temp 98.1 F 06/02/22 13:35 Pulse 85 06/02/22 13:35 Resp 18 06/02/22 13:35 BP 136/70 06/02/22 13:35 Pulse Ox 97 06/02/22 13:35 O2 Del Method 06/02/22 13:35 BMI result Body Mass Index 22.9 Course Course Course Narrative: RME--71yo M w/ multiple PMHx including CA and bypass on eliquis c/o exertional dyspnea, and fatigue x mos. No CP. Also reports anemia, no black stools or brbpr Plan: ekg, labs, UA, CXR ordered in triage MDM - SOB/Dyspnea Lab Data Result diagrams: 06/02/22 13:50 06/02/22 13:50 Labs: Lab Results 06/02/22 06/02/22 06/02/22 Range/Units 13:50 13:50 13:50 WBC 4.2 L (4.8-10.8) X10*3/uL RBC 3.32 L D (4.60-5.80) X10*6/uL Hgb 9.4 L D (14.0-18.0) g/dl Hct 29.8 L D (42.0-52.0) % MCV 89.8 (80.0-98.0) fL MCH 28.3 (27.0-33.0) pg MCHC 31.5 (31.0-36.0) g/dl RDW 17.5 H (11.0-16.0) % Plt Count 174 D (160-400) X10*3/uL MPV 9.4 (9.4-12.4) fL Immature Gran % (Auto) 0.5 H (0.0-0.4) % Neut % (Auto) 74.7 H (45-73) % Lymph % (Auto) 10.1 L (20-40) % [place] % (Auto) 13.5 H (2-11) % Eos % (Auto) 1.0 (0-4) % Baso % (Auto) 0.2 (0-2) % Lymph # (Auto) 0.4 L (1.2-4.9) X10*3/uL [place] # (Auto) 0.6 (0.1-1.2) X10*3/uL Eos # (Auto) 0.0 (0.0-0.4) X10*3/uL Baso # (Auto) 0.0 (0.0-0.2) X10*3/uL Abs Immat Gran (auto) 0.02 (0.00-0.03) X10*3/uL Absolute Neuts (auto) 3.1 (2.0-8.3) x10*3/uL Absolute Nucleated RBC 0.000 (0.0-0.012) X10*3/uL Nucleated RBC % (auto) 0.0 (0.0-0.2) /100WBC PT (10.0-13.1) SEC INR (0.9-1.1) Sodium 140 (135-145) mmol/L Potassium 4.5 (3.3-5.1) mmol/L Chloride 103 (96-108) mmol/L Carbon Dioxide 24 (22-29) mmol/L Anion Gap 18 (12-20) BUN 11 (9-16) mg/dL Creatinine 0.76 (0.5-1.4) mg/dL Estim Creat Clear Calc 90.1 Estimated GFR > 60 Random Glucose 166 H (60-115) mg/dL Calcium 8.8 (8.4-10.2) mg/dL Magnesium 1.7 (1.6-2.6) mg/dL Total Bilirubin 0.9 (0.0-1.0) mg/dL Direct Bilirubin 0.4 (0.0-0.5) mg/dL AST 19 (5-37) U/L ALT 17 (0-40) U/L Alkaline Phosphatase 121 H (39-117) U/L Troponin I High Sens < 3.5 (<3.5-35.0) ng/L B-Natriuretic Peptide (<100) pg/mL Total Protein 6.6 (6.5-8.0) g/dL Albumin 3.4 L (3.5-5.0) g/dL COVID-19 (MISHA) (Negative) COVID-19 Clin Com 06/02/22 06/02/22 06/02/22 Range/Units 13:50 13:50 13:50 WBC (4.8-10.8) X10*3/uL RBC (4.60-5.80) X10*6/uL Hgb (14.0-18.0) g/dl Hct (42.0-52.0) % MCV (80.0-98.0) fL MCH (27.0-33.0) pg MCHC (31.0-36.0) g/dl RDW (11.0-16.0) % Plt Count (160-400) X10*3/uL MPV (9.4-12.4) fL Immature Gran % (Auto) (0.0-0.4) % Neut % (Auto) (45-73) % Lymph % (Auto) (20-40) % [place] % (Auto) (2-11) % Eos % (Auto) (0-4) % Baso % (Auto) (0-2) % Lymph # (Auto) (1.2-4.9) X10*3/uL [place] # (Auto) (0.1-1.2) X10*3/uL Eos # (Auto) (0.0-0.4) X10*3/uL Baso # (Auto) (0.0-0.2) X10*3/uL Abs Immat Gran (auto) (0.00-0.03) X10*3/uL Absolute Neuts (auto) (2.0-8.3) x10*3/uL Absolute Nucleated RBC (0.0-0.012) X10*3/uL Nucleated RBC % (auto) (0.0-0.2) /100WBC PT 23.1 H (10.0-13.1) SEC INR 2.0 H (0.9-1.1) Sodium (135-145) mmol/L Potassium (3.3-5.1) mmol/L Chloride (96-108) mmol/L Carbon Dioxide (22-29) mmol/L Anion Gap (12-20) BUN (9-16) mg/dL Creatinine (0.5-1.4) mg/dL Estim Creat Clear Calc Estimated GFR Random Glucose (60-115) mg/dL Calcium (8.4-10.2) mg/dL Magnesium (1.6-2.6) mg/dL Total Bilirubin (0.0-1.0) mg/dL Direct Bilirubin (0.0-0.5) mg/dL AST (5-37) U/L ALT (0-40) U/L Alkaline Phosphatase (39-117) U/L Troponin I High Sens (<3.5-35.0) ng/L B-Natriuretic Peptide 146 H (<100) pg/mL Total Protein (6.5-8.0) g/dL Albumin (3.5-5.0) g/dL COVID-19 (MISHA) Negative (Negative) COVID-19 Clin Com See Note Discharge Plan Discharge Clinical Impression: Exertional dyspnea Patient Disposition: Left Without Being Seen Interventions: LWBS Worksheet Last Done: 06/02/22 17:35 Discharge Date/Time: 06/02/22 17:35
[2022-06-02 13:55] LABS: MANUAL DIFF FLAG NO
[2022-06-02 13:58] LABS: Basophils Percent Auto 0.2 % (0-2); Hematocrit 29.8 % (42.0-52.0); Hemoglobin 9.4 g/dl (14.0-18.0); Imm Gran Abs Auto 0.02 X10*3/uL (0.00-0.03); Imm Gran Pct Auto 0.5 % (0.0-0.4); Lymphocytes Absolute Auto 0.4 X10*3/uL (1.2-4.9); Lymphocytes Percent Auto 10.1 % (20-40); Mean Corpuscular HGB Conc 31.5 g/dl (31.0-36.0); Mean Corpuscular Hemoglobin 28.3 pg (27.0-33.0); Mean Corpuscular Volume 89.8 fL (80.0-98.0); Mean Platelet Volume 9.4 fL (9.4-12.4); Monocytes Absolute Auto 0.6 X10*3/uL (0.1-1.2); Monocytes Percent Auto 13.5 % (2-11); Neutrophils Absolute Auto 3.1 x10*3/uL (2.0-8.3); Neutrophils Percent Auto 74.7 % (45-73); Platelet Count 174 X10*3/uL (160-400); Red Blood Count 3.32 X10*6/uL (4.60-5.80); Red Cell Distribution Width 17.5 % (11.0-16.0); White Blood Count 4.2 X10*3/uL (4.8-10.8)
[2022-06-02 14:06] LABS: Prothrombin Time 23.1 SEC (10.0-13.1)
[2022-06-02 14:12] LABS: COVID-19 Test Negative (Negative)
[2022-06-02 14:20] LABS: B Type Natriuretic Peptide 146 pg/mL (<100)
[2022-06-02 14:21] LABS: Alanine Aminotransferase 17 U/L (0-40); Albumin Level 3.4 g/dL (3.5-5.0); Alkaline Phosphatase 121 U/L (39-117); Anion Gap 18 (12-20); Aspartate Amino Transferase 19 U/L (5-37); Bilirubin Direct 0.4 mg/dL (0.0-0.5); Bilirubin Total 0.9 mg/dL (0.0-1.0); Blood Urea Nitrogen 11 mg/dL (9-16); Calcium 8.8 mg/dL (8.4-10.2); Carbon Dioxide 24 mmol/L (22-29); Chloride 103 mmol/L (96-108); Creatinine Clr Calc Pharmacy 90.1; Estimated Glomerular Filt Rate > 60; Glucose Random 166 mg/dL (60-115); Magnesium 1.7 mg/dL (1.6-2.6); Potassium 4.5 mmol/L (3.3-5.1); Sodium 140 mmol/L (135-145); Total Protein 6.6 g/dL (6.5-8.0); Troponin-I High Sensitivity < 3.5 ng/L (<3.5-35.0)
== END 2022-06-02 17:35 | disposition left against medical advice (07) ==
PROVIDERS: Physician Assistant; Emergency Provider Emergency Medicine; PCP Internal Medicine
DX: R06.00 Dyspnea, unspecified (principal); R06.02 Shortness of breath; I10 Essential (primary) hypertension; E78.5 Hyperlipidemia, unspecified; I48.0 Paroxysmal atrial fibrillation; Z79.02 Long term (current) use of antithrombotics/antiplatelets; Z79.01 Long term (current) use of anticoagulants; Z79.899 Other long term (current) drug therapy; Z79.82 Long term (current) use of aspirin; Z20.822 Contact with and (suspected) exposure to COVID-19
CPT/HCPCS: 36415; 71045; 80048; 80076; 83735; 83880; 84484; 85025; 85610; 87635; 93005; 99283

== ENCOUNTER → 2022-09-22 10:13 | Outpatient (BNVA) | payer MEDICARE, OTHER, SELFPAY ==
[2021-01-12 08:55] VITALS: BMI 27.5
[2021-03-16 11:20] VITALS: BP 138/70
== END ==
PROVIDERS: PCP Internal Medicine; Referring Provider Internal Medicine; Visit Provider Internal Medicine
DX: I25.10 Atherosclerotic heart disease of native coronary artery without angina pectoris (principal); I44.7 Left bundle-branch block, unspecified; I48.0 Paroxysmal atrial fibrillation; I47.1 Supraventricular tachycardia; I95.0 Idiopathic hypotension
CPT/HCPCS: 99212

== ENCOUNTER 2023-04-11 10:15 | Outpatient (AMB) | payer MEDICARE, OTHER, SELFPAY ==
[2023-04-11 10:29] VITALS: BP 150/70; PULSE 66; BMI 26.5
--- NOTE | 2023-04-11 10:29 | MHC.OFFVIS ---
Intake Vital Signs 04/11/23 10:29 Height 5 ft 10 in Weight 184 lb 8.43 oz BMI 26.5 BP 150/70 H Blood Pressure Location Lt brachial Position Sitting Pulse 66 Intake Visit Reasons: 6 mth f/u Intake Note: 6 month follow up Personal Banking Representative Required: No Accompanied by: Self / Same As Patient Allergies No Known Allergies Allergy (Mild, Verified 04/11/23 10:31) NOT APPLICABLE Medication List - Last Reconciled 04/11/23 by Addi Dockery MD allopurinol 200 mg PO DAILY apixaban 5 mg PO BID atorvastatin 80 mg PO DAILY cyanocobalamin (vitamin B-12) (Vitamin B-12) 1,000 mcg PO DAILY famotidine 20 mg PO BID metformin 500 mg PO BID metoprolol succinate ER 150 mg PO DAILY multivitamin 1 tab PO DAILY nitroglycerin mg sublingual omega-3 fatty acids (Fish Oil Concentrate) 1,000 mg PO DAILY pantoprazole 40 mg PO DAILY tamsulosin 0.4 mg PO BEDTIME zanubrutinib (Brukinsa) 160 mg PO BID HPI HPI Comments History of Present Illness Details Donavan returns for follow-up regarding various cardiac issues. In 2011, he had ST elevation myocardial infarction. Cardiac catheterization then revealed culprit lesion in the mid LAD requiring stenting. In 2019, he was in [facility] with palpitations and chest pressure and found to have SVT with left bundle-branch block. Troponins were negative. Beta-celso was dose increased. Then another hospitalization when he was thought to have atrial fibrillation. Then started Eliquis. 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 Then he states that he underwent chemotherapy. Then, he was having anginal-type symptoms that led to yet another cardiac catheterization and then CABG. Then, got diagnosed with prostate cancer and started seeing urology. In spite of all the above, he states actually doing quite well. He does not really have any cardiac symptoms at all. Blood pressure is on the higher side today but he states that is unusual and other times it is either low or normal. [facility] Medical History (Updated 04/11/23 @ 10:54 by Addi Dockery MD) Prostate cancer Idiopathic hypotension Monoclonal gammopathy Hyperlipidemia, unspecified Essential hypertension PAF (paroxysmal atrial fibrillation) SVT (supraventricular tachycardia) Left bundle branch block Atherosclerotic cardiovascular disease Surgical History Status post coronary artery bypass graft History of coronary angioplasty History of tonsillectomy History of appendectomy Family History Father CVD (cardiovascular disease) Mother Diabetes Social History Patient Tobacco Use Status: Never used Tobacco Second Hand Smoke Exposure: Yes Review of Systems Const Denies weakness ENT Denies dizziness Card Denies chest pain, Denies chest pain with activity, Denies syncope, Denies rapid heart rate, Denies pedal edema, Denies edema, Denies leg edema, Denies lightheadedness, Denies palpitations, Denies dyspnea, Denies dyspnea on exertion and Denies orthopnea Resp Denies cough, Denies dyspnea and Denies dyspnea on exertion GI Denies hematochezia and Denies change in stool character Musc Denies abnormal gait, Denies muscle cramps, Denies muscle weakness, Denies numbness, Denies radiating pain into limb and Denies tingling Neuro Denies abnormal gait, Denies dizziness, Denies syncope, Denies numbness, Denies tingling and Denies weakness Endo Denies palpitations Physical Exam Vital Signs: Last Vital Signs Pulse 66 04/11/23 10:29 BP 150/70 H 04/11/23 10:29 BMI result Body Mass Index 26.5 Const General: comfortable and no acute distress Orientation/consciousness: patient oriented x3 HEENT Other: Unremarkable Head: Yes normal to inspection Neck Neck: Yes normal visual inspection Chest Chest palpation & inspection: normal inspection of the chest Resp Auscultation: clear to auscultation bilaterally Cardio Palpation: normal PMI Heart sounds: S1 normal heart sound present, S2 normal heart sound present, no gallops, no murmurs and no rubs GI Palpation (GI): Soft to palpation Back/Spine/Pelvis Other: unremarkable Skin General skin exam: no rashes or lesions noted Neuro General: patient oriented x3 Extrem General: Yes normal to inspection Psych Mental Status: mental status grossly normal Office Procedures EKG Details: EKG with sinus bradycardia at 56/Min; no significant ST-T changes and otherwise unremarkable[place] [id number], Complete Assessment & Plan Assessment & Plan (1) Atherosclerotic cardiovascular disease: Code(s): I25.10 - Atherosclerotic heart disease of [place] coronary artery without angina pectoris Plan: Status post CABG. He also had a mid LAD stent in 2011. No angina. Continue beta-blockers and statins. Last available LDL cholesterol is 71 mg/dL. Triglycerides 85 mg/dL. (2) Left bundle branch block: Code(s): I44.7 - Left bundle-branch block, unspecified Plan: Chronic finding. (3) PAF (paroxysmal atrial fibrillation): Code(s): I48.0 - Paroxysmal atrial fibrillation Plan: Continue beta-blockers and anticoagulation. During the time of bypass, he also underwent left atrial appendage removal and bilateral pulmonary vein isolation. No clinical recurrence recently. (4) SVT (supraventricular tachycardia): Code(s): I47.1 - Supraventricular tachycardia Plan: This has been noted on prior [facility] hospitalization. No recent issues. On beta-blockers at a significant dose. (5) Essential hypertension: Code(s): I10 - Essential (primary) hypertension Plan: Blood pressure seems rather high today. However, he states is unusual and most of the times daily than normal on the lower side. No further changes. In the past, he has been on losartan but no longer on it. Start due to low blood pressure issues. Coding Level of Care Code Est Pt Level 4 (53614) Diagnoses Atherosclerotic cardiovascular disease I25.10 Left bundle branch block I44.7 PAF (paroxysmal atrial fibrillation) I48.0 SVT (supraventricular tachycardia) I47.1 Essential hypertension I10 CPT Codes EKG - CPT: 87639-[id number], Complete ([id number])
== END 2023-04-11 10:50 | disposition home or self-care (01) ==
PROVIDERS: PCP Internal Medicine; Visit Provider Internal Medicine
DX: I25.10 Atherosclerotic heart disease of native coronary artery without angina pectoris (principal); I44.7 Left bundle-branch block, unspecified; I48.0 Paroxysmal atrial fibrillation; I47.1 Supraventricular tachycardia; I10 Essential (primary) hypertension
CPT/HCPCS: 93010; 99214

== ENCOUNTER → 2023-04-11 10:15 | Outpatient (BNVA) | payer MEDICARE, OTHER, SELFPAY ==
[2021-01-12 08:55] VITALS: BMI 27.5
[2021-03-16 11:20] VITALS: BP 138/70
== END ==
PROVIDERS: PCP Internal Medicine; Visit Provider Internal Medicine
DX: I10 Essential (primary) hypertension (principal); I21.02 ST elevation (STEMI) myocardial infarction involving left anterior descending coronary artery; I47.1 Supraventricular tachycardia; I44.7 Left bundle-branch block, unspecified; I48.0 Paroxysmal atrial fibrillation; I25.10 Atherosclerotic heart disease of native coronary artery without angina pectoris; D47.2 Monoclonal gammopathy; C61 Malignant neoplasm of prostate; Z98.890 Other specified postprocedural states; Z95.5 Presence of coronary angioplasty implant and graft; Z95.1 Presence of aortocoronary bypass graft
CPT/HCPCS: 93005; 99212

== ENCOUNTER 2023-10-25 14:23 | Outpatient (AMB) | payer MEDICARE, OTHER, SELFPAY ==
--- NOTE | 2023-10-25 14:29 | A.OFFVIS_ITS ---
Intake Vital Signs 10/25/23 14:30 Height 5 ft 10 in Weight 196 lb 3.382 oz BMI 28.2 BP 130/78 Blood Pressure Location Lt brachial Position Left Lateral Pulse 57 Pulse Source Monitor Intake Visit Reasons: 6 month follow up Intake Note: 6 month follow with EKG PT feels good Allergies No Known Allergies Allergy (Mild, Verified 04/11/23 10:31) NOT APPLICABLE Medication List - Last Reconciled 10/25/23 by Elaina Mendez NP allopurinol 200 mg PO DAILY apixaban 5 mg PO BID atorvastatin 80 mg PO DAILY cyanocobalamin (vitamin B-12) (Vitamin B-12) 1,000 mcg PO DAILY famotidine 20 mg PO BID metformin 500 mg PO BID metoprolol succinate ER 150 mg PO DAILY multivitamin 1 tab PO DAILY nitroglycerin mg sublingual omega-3 fatty acids (Fish Oil Concentrate) 1,000 mg PO DAILY pantoprazole 40 mg PO DAILY tamsulosin 0.4 mg PO BEDTIME zanubrutinib (Brukinsa) 160 mg PO BID HPI HPI Comments History of Present Illness Details 73-year-old male presents for a follow-u p. He reports he has been doing well since his last visit. He denies chest pains, shortness of breath, palpitations, or swelling. He has a medical history of hypertension, CABG, PAF, and SVT. [place] the mall 3 times a week and tolerates it well. [facility] Medical History (Updated 04/11/23 @ 10:54 by Addi Dockery MD) Prostate cancer Idiopathic hypotension Monoclonal gammopathy Hyperlipidemia, unspecified Essential hypertension PAF (paroxysmal atrial fibrillation) SVT (supraventricular tachycardia) Left bundle branch block Atherosclerotic cardiovascular disease Surgical History Status post coronary artery bypass graft History of coronary angioplasty History of tonsillectomy History of appendectomy Family History Father CVD (cardiovascular disease) Mother Diabetes Social History Patient Tobacco Use Status: Never used Tobacco Second Hand Smoke Exposure: Yes Review of Systems Const Denies weakness ENT Denies dizziness Card Denies chest pain, Denies chest pain with activity, Denies syncope, Denies rapid heart rate, Denies pedal edema, Denies edema, Denies leg edema, Denies lightheadedness, Denies palpitations, Denies dyspnea, Denies dyspnea on exertion and Denies orthopnea Resp Denies cough, Denies dyspnea and Denies dyspnea on exertion GI Denies hematochezia and Denies change in stool character Musc Denies abnormal gait, Denies muscle cramps, Denies muscle weakness, Denies numbness, Denies radiating pain into limb and Denies tingling Neuro Denies abnormal gait, Denies dizziness, Denies syncope, Denies numbness, Denies tingling and Denies weakness Endo Denies palpitations Physical Exam Vital Signs: Last Vital Signs Pulse 57 10/25/23 14:30 BP 130/78 10/25/23 14:30 BMI result Body Mass Index 28.2 Const General: healthy appearing and no acute distress Orientation/consciousness: patient oriented x3 HEENT Head: Yes normal to inspection Eyes General: appearance normal, both eyes and all related structures Neck Neck: Yes normal visual inspection Chest Chest palpation & inspection: normal inspection of the chest Resp Effort & Inspection: normal respiratory effort Auscultation: clear to auscultation bilaterally Cardio Jugular venous distension: no JVD Palpation: normal PMI Rate: regular rate Rhythm: regular rhythm Heart sounds: S1 normal heart sound present, S2 normal heart sound present, no click, no gallops, no murmurs and no rubs GI Inspection: Yes normal to inspection Palpation (GI): Soft to palpation Skin General skin exam: no rashes or lesions noted Neuro General: patient oriented x3 Extrem General: Yes normal to inspection Psych Appearance: grossly normal Office Procedures EKG Details: EKG today. Sinus Johnathon first degree AV bloxk. Rightward axis. Left Bundle Branch Block. Rate 57 bpm. QRS 162ms. QTC 447 ms. [id number], Complete Assessment & Plan Assessment & Plan (1) Atherosclerotic cardiovascular disease: Code(s): I25.10 - Atherosclerotic heart disease of [place] coronary artery without angina pectoris (2) Left bundle branch block: Code(s): I44.7 - Left bundle-branch block, unspecified (3) Essential hypertension: Code(s): I10 - Essential (primary) hypertension (4) PAF (paroxysmal atrial fibrillation): Code(s): I48.0 - Paroxysmal atrial fibrillation Plan History of CABG and mid LAD stent in 2011. On statins, beta-celso and ASA. Will send for lipid panel to update LDL. Sinus on EKG today. Chronic LBBB. On eliquis and beta blockers for rate and anticoagualtion. History of high blood pressures, blood pressure today within range. Orders: Orders Basic Metabolic Panel Today I25.10 - Atherosclerotic heart disease of [place] coronary artery without angina pectoris Lipid Panel Today I25.10 - Atherosclerotic heart disease of [place] coronary artery without angina pectoris Coding Level of Care Code Est Pt Level 4 (25184) Diagnoses Atherosclerotic cardiovascular disease I25.10 Left bundle branch block I44.7 Essential hypertension I10 PAF (paroxysmal atrial fibrillation) I48.0 CPT Codes EKG - CPT: 26556-[id number], Complete ([id number])
[2023-10-25 14:30] VITALS: BP 130/78; PULSE 57; BMI 28.2
== END 2023-10-25 15:10 | disposition home or self-care (01) ==
PROVIDERS: PCP Internal Medicine; Visit Provider Nurse Practitioner
DX: I25.10 Atherosclerotic heart disease of native coronary artery without angina pectoris (principal); I44.7 Left bundle-branch block, unspecified; I10 Essential (primary) hypertension; I48.0 Paroxysmal atrial fibrillation
CPT/HCPCS: 93010; 99214

== ENCOUNTER → 2023-10-25 14:23 | Outpatient (BNVA) | payer MEDICARE, OTHER, SELFPAY ==
[2021-01-12 08:55] VITALS: BMI 27.5
[2021-03-16 11:20] VITALS: BP 138/70
== END ==
PROVIDERS: PCP Internal Medicine; Visit Provider Nurse Practitioner
DX: I25.10 Atherosclerotic heart disease of native coronary artery without angina pectoris (principal); I10 Essential (primary) hypertension; I44.0 Atrioventricular block, first degree; I44.7 Left bundle-branch block, unspecified; I48.0 Paroxysmal atrial fibrillation; Z95.1 Presence of aortocoronary bypass graft; Z79.01 Long term (current) use of anticoagulants; Z79.899 Other long term (current) drug therapy
CPT/HCPCS: 93005; 99212

== ENCOUNTER 2023-10-26 08:05 | Outpatient (REF) | payer MEDICARE, OTHER, SELFPAY ==
[2023-10-26 09:14] LABS: Anion Gap 10 (12-20); Blood Urea Nitrogen 15 mg/dL (9-16); Carbon Dioxide 28 mmol/L (22-29); Chloride 109 mmol/L (96-108); Cholesterol 101 mg/dL (<200); Estimated Glomerular Filt Rate > 60; Glucose Random 164 mg/dL (60-115); HDL Cholesterol 48 mg/dL (>40); LDL Cholesterol Calculated 39 mg/dL (<100); Potassium 4.4 mmol/L (3.3-5.1); Sodium 143 mmol/L (135-145); Triglycerides 74 mg/dL (<150)
== END 2023-10-26 08:06 | disposition home or self-care (01) ==
LOC: HO.LAB 08:05
PROVIDERS: Visit Provider Nurse Practitioner
DX: I25.10 Atherosclerotic heart disease of native coronary artery without angina pectoris (principal)
CPT/HCPCS: 36415; 80048; 80061

== ENCOUNTER 2024-12-09 13:39 | Outpatient (AMB) | payer MEDICARE, OTHER, SELFPAY ==
--- OUTSIDE RECORDS SUMMARY | 2024-12-09 13:42 | XMS_ITS | Clinical Summary ---
Author Organization [facility] Address [address] [place] [address] Care Team Providers Care Flavoring Maker Name Role Phone Geo Garcia MD Primary Care Provider [phone] Allergies No known active allergies Medications acetaminophen (TYLENOL) 650 MG CR tablet Take 650 mg by mouth 3 times daily (every 8 hours) as needed. for pain 12/15/2021 Active allopurinol (ZYLOPRIM) 100 mg tablet Take 200 mg by mouth every morning. 11/25/2021 Active Eliquis 5 MG tablet Take 5 mg by mouth 2 (two) times a day. 10/22/2021 Active atorvastatin (LIPITOR) 80 MG tablet Take 80 mg by mouth nightly. 11/27/2021 Active bicalutamide (CASODEX) 50 MG tablet Take 50 mg by mouth every morning. 12/20/2021 Active clindamycin (CLEOCIN) 300 MG capsule Take 300 mg by mouth 3 times daily (every 8 hours). 12/15/2021 Active metoPROLOL SUCCINATE (TOPROL-XL) 50 MG 24 hr tablet Take 150 mg by mouth every morning. 10/11/2021 Active OMEprazole (PriLOSEC) 40 MG capsule Take 40 mg by mouth every morning. 10/14/2021 Active tamsulosin (FLOMAX) 0.4 MG capsule Take 0.4 mg by mouth nightly. 11/25/2021 Active omega-3 fatty acids (FISH OIL) 1000 MG Cap capsule Take 1,000 mg by mouth 2 (two) times a day. Active aspirin enteric coated (ECOTRIN LOW STRENGTH) 81 MG EC tablet Take 81 mg by mouth every morning. Active multivitamin (multivitamin) Tab tablet Take 2 tablets by mouth every morning. 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 12/22/2021 Social History Tobacco Use Types Packs/Day Years Used Date Smoking Tobacco: Passive Smo ke Exposure - Never Smoker Smokeless Tobacco: Never Sex and Gender Information Value Date Recorded Sex Assigned at Not on file Legal Sex Male 11:01 PM EDT Gender Identity Not on file Sexual Orientation Not on file Last Filed Vital Signs Vital Sign Reading Time Taken Comments Blood Pressure 146/70 12/23/2021 1:00 PM EDT Pulse 64 12/23/2021 1:00 PM EDT Temperature 36.2 ??C (97.2 ??F) 12/23/2021 1:00 PM ED T Respiratory Rate 18 12/23/2021 1:00 PM EDT Oxygen Saturation 95% 12/23/2021 1:00 PM EDT Inhaled Oxygen Concentration - - Weight 78.9 kg (174 lb) 12/22/2021 5:44 PM EDT Height 162.6 cm (5' 4 ) 12/22/2021 5:44 PM EDT Body Mass Index 29.87 12/22/2021 5:44 PM EDT Plan of Treatment Health Maintenance Due Date Last Done Comments Hepatitis C Virus Screening 1950 DTaP/Tdap/Td Vaccines (1 - Tdap) 1968 Pneumococcal Vaccines 50+ (1 of 2 - PCV) 1968 Zoster (Shingles) Vaccine (1 of 2) 1968 Colonoscopy 1994 COVID-19 Vaccine ( - season) 2024 04/11/2021, 12/01/2020, 10/18/2020 RSV Vaccine 60 years and older and Patients (1 - 1-dose 75+ series) 2024 Influenza Vaccine 02/21/2025 05/06/2021, , 04/05/2019, Additional history exists Hepatitis B Vaccines Aged Out No long er eligible based on patient's age to complete this topic Insurance [facility] Member Subscriber Plan / Payer (Ef fective 2018-Present) Name:Donavan Kim Relation to Subscriber:Self Name:Donavan Kim Payer ID:Not on file Type:Not on file Address: [place] [id number] MEDICARE PART A & B Advance Directives * Full Code (Latest Code Status on File) Date Activated Date Inactivated Comments 12/22/2021 12:37 PM Care Teams Flavoring Maker Relationship Specialty Start Date End Date Geo Garcia MD [address] [place] [phone] PCP - General Internal Medicine 12/22/21
--- OUTSIDE RECORDS SUMMARY | 2024-12-09 13:42 | XMS_ITS | Encounter Summary ---
Author Organization [facility] Address [address] [place] [address] Care Team Providers Care Checkering Machine Operator Name Role Phone Physician, Pcp Unknown Primary Care Provider Earline vailable Encounter Details Date Type Department Care Team (Late st Contact Info) Description 09/19/2024 Lab Requisition [facility] - Main Lab [address] [facility] [place] [address] Maco Valladares MD [address] [facility] [address] [place] [address] Other microscopic hematuria Social History Tobacco Use Types Packs/Day Years Used Date Smoking Tobacco: Never Assessed Sex and Gender Information Value Date Recorded Sex Assigned at Not on file Legal Sex Male 1:55 PM EST Gender Identity Not on file Sexual Orientation Not on file documented as of this encounter Plan of Treatment Not on file documented as of this encounter Procedures Procedure Name Priority Date/Time Associated Diagnosis Comments AP OUTSIDE CONSULT Routine 09/18/2024 12 :00 AM EST Other microscopic hematuria documented in this encounter Results * Anatomic pathology outside consult (09/18/2024 12:00 AM EST) Final Diagnosis A. Urine, Voided, [id number]: Negative for high grade urothelial carcinoma. 09/26/2024 2:47 PM EST [facility] Clinical Information Other microscopic hematuria R31.29 Urine cytology with reflex UroVysion ([facility]GUC) 09/26/2024 2:47 PM EST [facility] Gross Description A. Urine, Voided, [id number]: Received is one ThinPrep slide for cytology. 09/26/2024 2:47 PM EST [facility] Disclaimer Unless otherwise specified, all tissue is 10% NB formalin fixed and paraffin embedded. Technical pathology services provided by [facility] at [address] [facility] [address], [place] [address] (CLIA #[id number]/Sa dom Rosenbaum MD, Political Theory Professor) 09/26/2024 2:47 PM EST [facility] Tissue Urine specimen from urethra / Unknown 09/18/2024 09/19/2024 2:01 PM EST us Maco Valladares MD LAB PATHOLOGY ORDERABLES Fi nal Result [facility] [address] [place] [address], documented in this encounter Visit Diagnoses Diagnosis Other microscopic hematuria documented in this encounter Care Teams Checkering Machine Operator Relationship Specialty Start Date End Date Physician, Pcp Unknown PCP - General 09/19/24 documented as of this encounter
--- OUTSIDE RECORDS SUMMARY | 2024-12-09 13:42 | XMS_ITS ---
Author Name [facility] Organization Unknown Encounters Encounter Type Encounter Reason Primary Diagnosis Location Date Observation Partial loss of teeth, unspecified cause, unspecified class [facility] 12/22/2021 Care Team Organization Name Specialty Phone Email Start Date End Da te [facility] 12/22/2021 03/11/2024 [facility] 12/22/2021 12/22/2021
--- OUTSIDE RECORDS SUMMARY | 2024-12-09 13:42 | XMS_ITS | Clinical Summary ---
Author Organization [address] [facility] Address [address] [place] [address] Phone Care Team Providers Care Artificial Cherry Maker Name Role Phone Physician, Pcp Unknown Primary Care Provider Earline vailable Encounters Date Type Department Care Team Description 09/19/2024 Lab Requisition [facility] - Main Lab [address] [facility] [place] [address] Maco Valladares MD Other microscopic hematuria from Last 3 Months Social History Tobacco Use Types Packs/Day Years Used Date Smoking Tobacco: Never Assessed Sex and Gender Information Value Date Recorded Sex Assigned at Not on file Legal Sex Male 1:55 PM EST Gender Identity Not on file Sexual Orientation Not on file Plan of Treatment Health Maintenance Due Date Last Done Comments DTaP,Tdap,and Td Vaccines (1 - Tdap) 1968 Pneumococcal Vaccine: 50+ Ye ars (1 of 1 - PCV) 1999 Zoster Vaccines (1 of 2) 1999 COVID-19 Vaccine ( - 2023-2 5 season) 2024 RSV Immunization Adult Patie nts (1 - 1-dose 75+ series) 2024 Abdominal Aortic Aneurysm (A AA) Screen 09/19/2024 Cholesterol Screening (Lipid Panel) 09/19/2024 Colorectal Cancer Screening: Colonoscopy 09/19/2024 Depression Screening 09/19/2024 Falls Risk Assessment 09/19/2024 Hepatitis C Screening 09/19/2024 Medicare Annual Wellness Visit 09/19/2024 Social Influencers of Health Screening 09/19/2024 Influenza Vaccine (Season Ended) 2025 HIB Vaccines Aged Out No longer eligi ble based on patient's age to complete this topic HPV Vaccines Aged Out No longer eligi ble based on patient's age to complete this topic Hepatitis A Vaccines Aged Out No long er eligible based on patient's age to complete this topic Hepatitis B Vaccines Aged Out No long er eligible based on patient's age to complete this topic IPV Vaccines Aged Out No longer eligi ble based on patient's age to complete this topic MMR Vaccines Aged Out No longer eligi ble based on patient's age to complete this topic Meningococcal ACWY Vaccine Aged Out N o longer eligible based on patient's age to complete this topic Meningococcal B Vaccine Aged Out No l onger eligible based on patient's age to complete this topic RSV Immunization Patients Un lenka 20 months Aged Out No longer eligible b ased on patient's age to complete this topic Varicella Vaccines Aged Out No longer eligible based on patient's age to complete this topic Procedures Procedure Name Priority Date/Time Associated Diagnosis Comments AP OUTSIDE CONSULT Routine 09/18/2024 12 :00 AM EST Other microscopic hematuria from Last 3 Months Results * Anatomic pathology outside consult (09/18/2024 12:00 AM EST) Final Diagnosis A. Urine, Voided, [id number]: Negative for high grade urothelial carcinoma. 09/26/2024 2:47 PM [facility] Clinical Information Other microscopic hematuria R31.29 Urine cytology with reflex UroVysion ([facility]) 09/26/2024 2:47 PM [facility] Gross Description A. Urine, Voided, [id number]: Received is one ThinPrep slide for cytology. 09/26/2024 2:47 PM [facility] Disclaimer Unless otherwise specified, all tissue is 10% NB formalin fixed and paraffin embedded. Technical pathology services provided by [facility] at [address] [place] [address] [address], [place] [address] (CLIA #[id number]/Sa dom Rosenbaum MD, Malt House Loader) 09/26/2024 2:47 PM [facility] Tissue Urine specimen from urethra / Unknown 09/18/2024 09/19/2024 2:01 PM EST us Maco Valladares MD LAB PATHOLOGY ORDERABLES Fi nal Result [facility] ([facility]) [facility] [address] [place] [address], [place] [phone] from Last 3 Months Insurance MEDICARE [facility] [address] [place] [address] Care Teams Artificial Cherry Maker Relationship Specialty Start Date End Date Physician, Pcp Unknown PCP - General 09/19/24
[2024-12-09 13:43] VITALS: BP 122/68; PULSE 65; BMI 28.5
--- NOTE | 2024-12-09 13:43 | MHC.OFFVIS ---
Vital Signs 12/09/24 13:43 Height 5 ft 10 in Weight 198 lb 6.656 oz BMI 28.5 BP 122/68 Blood Pressure Location Lt brachial Position Sitting Pulse 65 Pulse Source Monitor Intake Visit Reasons: overdue follow up Allergies No Known Allergies Allergy (Mild, Verified 04/11/23 10:31) NOT APPLICABLE Medication List - Last Reconciled 12/09/24 by Addi Dockery MD allopurinol 200 mg PO DAILY apixaban 5 mg PO BID atorvastatin 80 mg PO DAILY cyanocobalamin (vitamin B-12) (Vitamin B-12) 1,000 mcg PO DAILY famotidine 20 mg PO BID metformin 500 mg PO BID metoprolol succinate ER 150 mg PO DAILY multivitamin 1 tab PO DAILY nitroglycerin mg sublingual omega-3 fatty acids (Fish Oil Concentrate) 1,000 mg PO DAILY pantoprazole 40 mg PO DAILY tamsulosin 0.4 mg PO BEDTIME valsartan 80 mg PO DAILY zanubrutinib (Brukinsa) 160 mg PO BID HPI Comments Details: Donavan returns for follow-up regarding various cardiac issues. In 2011, he had ST elevation myocardial infarction. Cardiac catheterization then revealed culprit lesion in the mid LAD requiring stenting. In 2019, he had SVT with left bundle-branch block. Beta-celso was dose increased. Then another hospitalization when he was thought to have atrial fibrillation. Then started Eliquis. 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 Then underwent chemotherapy. Then, had anginal-type symptoms that led to yet another cardiac catheterization and then CABG. Then, got diagnosed with prostate cancer and started seeing urology. He states that he is actually doing quite well without any cardiac symptoms. No angina or in fact anything else of concern. [facility] Medical History (Updated 04/11/23 @ 10:54 by Addi Dockery MD) Prostate cancer Idiopathic hypotension Monoclonal gammopathy Hyperlipidemia, unspecified Essential hypertension PAF (paroxysmal atrial fibrillation) SVT (supraventricular tachycardia) Left bundle branch block Atherosclerotic cardiovascular disease Surgical History Status post coronary artery bypass graft History of coronary angioplasty History of tonsillectomy History of appendectomy Family History Father CVD (cardiovascular disease) Mother Diabetes Social History Patient Tobacco Use Status: Never used Tobacco Second Hand Smoke Exposure: Yes Review of Systems Const Denies weakness ENT Denies dizziness Card Denies chest pain, Denies chest pain with activity, Denies syncope, Denies rapid heart rate, Denies pedal edema, Denies edema, Denies leg edema, Denies lightheadedness, Denies palpitations, Denies dyspnea, Denies dyspnea on exertion and Denies orthopnea Resp Denies cough, Denies dyspnea and Denies dyspnea on exertion GI Denies hematochezia and Denies change in stool character Musc Denies abnormal gait, Denies muscle cramps, Denies muscle weakness, Denies numbness, Denies radiating pain into limb and Denies tingling Neuro Denies abnormal gait, Denies dizziness, Denies syncope, Denies numbness, Denies tingling and Denies weakness Endo Denies palpitations Physical Exam Vital Signs: Last Vital Signs Pulse 65 12/09/24 13:43 BP 122/68 12/09/24 13:43 BMI result Body Mass Index 28.5 Const General: comfortable and no acute distress Orientation/consciousness: patient oriented x3 HEENT Other: Unremarkable Head: Yes normal to inspection Neck Neck: Yes normal visual inspection Chest Chest palpation & inspection: normal inspection of the chest Resp Auscultation: clear to auscultation bilaterally Cardio Palpation: normal PMI Heart sounds: S1 normal heart sound present, S2 normal heart sound present, no gallops, no murmurs and no rubs GI Palpation (GI): Soft to palpation Back/Spine/Pelvis Other: unremarkable Skin General skin exam: no rashes or lesions noted Neuro General: patient oriented x3 Extrem General: Yes normal to inspection Psych Mental Status: mental status grossly normal Office Procedures EKG Details: EKG with underlying sinus rhythm at 65/Min with prolonged CO to 224 milliseconds; right bundle-branch block and left posterior fascicular block. [id number], Complete Assessment & Plan Assessment & Plan (1) Atherosclerotic cardiovascular disease: Code(s): I25.10 - Atherosclerotic heart disease of [place] coronary artery without angina pectoris Category: Medical Plan: Status post CABG. He also had a mid LAD stent in 2011. No angina. Continue beta-blockers and statins. Last available LDL cholesterol is 39mg/dL. Triglycerides 74 mg/dL. (2) Left bundle branch block: Code(s): I44.7 - Left bundle-branch block, unspecified Category: Medical Plan: In the past, had left bundle-branch block but today's EKGs rather shows right bundle-branch block with left posterior fascicular block. We will obtain echocardiogram for any changes in cardiac function and also get Holter monitor. May need to cut back on beta-blockers. (3) PAF (paroxysmal atrial fibrillation): Code(s): I48.0 - Paroxysmal atrial fibrillation Category: Medical Plan: He remains on beta-blockers and anticoagulation. During the time of bypass, he also underwent left atrial appendage removal and bilateral pulmonary vein isolation. No clinical recurrence recently. (4) SVT (supraventricular tachycardia): Code(s): I47.1 - Supraventricular tachycardia Category: Medical Plan: No recent issues. On beta-blockers. (5) Essential hypertension: Code(s): I10 - Essential (primary) hypertension Category: Medical Plan: Stable. Orders: Orders CA echo transthoracic complete Today Z95.1 - Presence of aortocoronary bypass graft ECG 3 day holter monitor Today I44.1 - Atrioventricular block, second degree Coding Level of Care Code Est Pt Level 4 (35234) Complex EM visit Add On G2211 Diagnoses Atherosclerotic cardiovascular disease I25.10 Left bundle branch block I44.7 PAF (paroxysmal atrial fibrillation) I48.0 SVT (supraventricular tachycardia) I47.1 Essential hypertension I10 CPT Codes EKG - CPT: [id number], Complete ([id number])
== END 2024-12-09 14:11 | disposition home or self-care (01) ==
LOC: HO.HCS 13:39
PROVIDERS: PCP Internal Medicine; Visit Provider Internal Medicine
DX: I25.10 Atherosclerotic heart disease of native coronary artery without angina pectoris (principal); I44.7 Left bundle-branch block, unspecified; I48.0 Paroxysmal atrial fibrillation; I47.10 Supraventricular tachycardia, unspecified; I10 Essential (primary) hypertension
CPT/HCPCS: 93010; 99214; G2211

== ENCOUNTER → 2024-12-09 13:39 | Outpatient (BNVA) | payer MEDICARE, OTHER, SELFPAY ==
[2021-01-12 08:55] VITALS: BMI 27.5
[2021-03-16 11:20] VITALS: BP 138/70
== END ==
PROVIDERS: PCP Internal Medicine; Visit Provider Internal Medicine
DX: I25.10 Atherosclerotic heart disease of native coronary artery without angina pectoris (principal); I44.7 Left bundle-branch block, unspecified; I48.0 Paroxysmal atrial fibrillation; I47.10 Supraventricular tachycardia, unspecified; I10 Essential (primary) hypertension
CPT/HCPCS: 93005; 99212

== ENCOUNTER → 2025-02-17 09:46 | Outpatient (REF) | payer MEDICARE, OTHER, SELFPAY ==
--- NOTE | 2025-02-17 09:49 | HM_ITS ---
* Total monitoring time 3 days. * Underlying rhythm is sinus with an average rate of 58/Min. About 71% of the time, rate < 60/Min. * Rare supraventricular ectopy. * Ventricular ectopy noted with a burden of 1.7%. Rare couplets. One run of 5 beats. * No significant pauses or high-grade AV blocks. * No patient markers or diary events. MTDD
--- NOTE | 2025-02-17 09:49 | CA_ITS ---
Transthoracic Echocardiogram Patient (Last, First, Middle): Donavan Kim H Gender: Male Date of : 1950 Age: 74 Procedure Date: 02/17/2025 Procedure Type: Transthoracic Echocardiogram Location: OP Height: 177.8 cm Weight: 89.81 kg BSA: 2.08 m2 Heart Rate: bpm BP: 122 / 68 mmHg Overhauler: CANDIS Referring MD: Addi Dockery MD Student Assistance Counselor: Arley Davey MD Symptoms: Z95.1 - Presence of aortocoronary bypass graft Study Quality: Fair, contrast ECG Rhythm: Sinus Conclusions: - 1. Low normal LV ejection fraction of 50-55% with grade 1 diastolic dysfunction 2. Moderately reduced RV systolic function 3. Mild aortic and mitral regurgitation 4. Normal RV systolic pressure 5. Mildly dilated ascending aorta 3.8 cm 6. No pericardial effusion Findings Procedure Information Contrast agent, definity, is being given per protocol without apparent complications. Left Ventricle Normal left ventricular cavity size. There is normal left ventricular wall thickness. The left ventricular systolic function is low normal. The visually estimated ejection fraction is between 50-55%. There is paradoxical septal motion consistent with post-operative status. Spectral Doppler is indicative of an impaired relaxation filling pattern. E/E prime ratio is <8, consistent with normal filling pressures. Evidence suggests grade I (mild) diastolic dysfunction. Wall Motion Rest Echo Findings The inferolateral wall and apical septum segment are hypokinetic. All other scored wall segments showed normal motion. Right Ventricle Mildly increased right ventricular cavity size. There is moderately decreased right ventricular systolic function. Atria The left atrium is likely dilated. There is no evidence of interatrial shunt. The right atrium is normal in size. Aortic Valve There is mild calcification of the aortic valve. There is no aortic valve stenosis. There is mild aortic valve regurgitation. Mitral Valve There is mild anterior and posterior mitral leaflet thickening. There is mild mitral annular calcification. There is mild mitral valve regurgitation. There is no mitral valve stenosis. Tricuspid Valve Likely normal tricuspid valve structure and function. There is trace tricuspid valve regurgitation. The right ventricular systolic pressure is normal. The right ventricular systolic pressure is 25 mmHg. Normal right atrial pressure. There is no evidence of pulmonary hypertension. Great Vessels The pulmonary artery was not well visualized. There is mild dilatation of the ascending aorta measuring 3.80 cm. Small plaque is seen in the sino tubular ridge. Venous The inferior vena cava is normal in size and collapses greater than 50% with inspiration. Pericardium/Pleural There is no evidence of pericardial effusion. Prior Study Comparison Changes noted compared to prior study dated: 12/10/2020. LV function has marginally reduced Measurements 2D Linear Measurements IVSd: 1.03 0.6-0.9/0.6-1.0 cm LVIDd: 5.34 3.9-5.3/4.2-5.9 cm LVIDd Index: 2.57 2.4-3.2/2.2-3.1 cm/m2 LVIDs: 3.38 2.0-3.6 cm LVPWd: 0.99 0.7-1.1 cm LA Diam: 4.30 2.7-3.8/3.0-4.0 cm LAIDs Index: 2.07 1.5-2.3 cm/m2 LV Mass: 256.95 67-162/88-224 g LV Mass Index: 123.53 43-95/49-115 g/m2 LVOT Diam: 2.30 3.0+(-)1.3 cm 2D Systolic Function EF 4C: 48.50 >55% EF 2C: 56.30 >55% EF BiP: 53.50 >55% Mitral Valve MV Pk E: 0.56 MV PK A: 0.59 MV Decel Time: 287.00 E/A: 0.90 E'Lateral: 9.68 E'Medial: 5.22 E/E' Med: 10.70 E/E' Lat: 5.80 PHT: 84.00 MVA PHT: 2.62 Decel [place]: 1.95 Aortic Valve AoV Pk Robb: 1.26 AoV Mn Robb: 0.88 AoV VTI: 0.26 AoV Pk Grad: 6.00 Aov Mn Grad: 4.00 LIZZIE Cont.VTI: 2.95 AI Pk Robb: 4.34 AI [place]: 1.61 LVOT LVOT Pk Robb: 0.82 LVOT Mn Robb: 0.58 LVOT VTI: 0.18 LVOT Pk Grad: 3.00 LVOT Mn Grad: 2.00 LVOT Diam: 2.30 LVOT Area: 4.15 Diastolic Function MV Pk E: 0.56 MV Pk A: 0.59 E/A: 0.90 E'Medial: 5.22 E/E' Med: 10.70 E' Laterial: 9.68 E/E' Lat: 5.80 Right Ventricle TAPSE (mm): 13.40 TVS' Robb: 3.92 Tricuspid Valve TR Pk Robb: 2.37 TR Pk Grad: 22.00 RA Press: 3.00 RVSP: 25.00 Great Vessels Aorta Sinus of Valsalva: 3.81 2.0-3.[address] [place]: 3.05 1.7-3.4 cm Ao Asc: 3.80 2.1-3.4 cm Updated in Other Vendor System with Status of Final Arley Davey MD electronically signed on 02/17/2025 12:16:48 PM with status of Final
--- OUTSIDE RECORDS SUMMARY | 2025-02-17 10:43 | XMS_ITS | Clinical Summary ---
Author Organization [facility] Address [address] [place] [address] Phone Care Team Providers Care Stenciler Name Role Phone Geo Garcia MD Primary Care Provider + Social History Tobacco Use Types Packs/Day Years Used Date Smoking Tobacco: Never Assessed Education Answer Date Recorded Are you interested in more education? Not on keon e 11/19/2022 Are you concerned about learning? Not on file 11/19/2022 No 11/19/2022 No 11/19/2022 Digital Access Answer Date Recorded No 12/20/2022 No 12/20/2022 Reliable internet access at home? Not on file 12/20/2022 Device with a working camera? Not on file Sex and Gender Information Value Date Recorded Sex Assigned at Not on file Legal Sex Male 1:35 PM EDT Gender Identity Not on file Sexual Orientation Not on file Plan of Treatment Not on file Medical Devices Not on file Insurance [facility] MEDICARE SUPPLEMENT MEDICARE PART A & B MEDICARE SUPPLEMENT MEDICARE PART A & B [facility] MEDICARE SUPPLEMENT MEDICARE PART A & B MEDICARE SUPPLEMENT MEDICARE PART A & B [facility] MEDICARE SUPPLEMENT MEDICARE PART A & B MEDICARE SUPPLEMENT MEDICARE PART A & B Care Teams Stenciler Relationship Specialty Start Date End Date Geo Garcia MD PCP - General Internal Medicine 10/07/22 Additional Source Comments The information contained in this document represents components of the legal health record. It is not the complete legal health record.[facility]
--- OUTSIDE RECORDS SUMMARY | 2025-02-17 10:43 | XMS_ITS | Encounter Summary ---
Author Organization [facility] Address [address] [place] [address] Care Team Providers Care Senior Professional Services Consultant Name Role Phone Physician, Pcp Unknown Primary Care Provider Earline vailable Encounter Details Date Type Department Care Team (Late st Contact Info) Description 09/19/[address] [facility] - Main Lab [address] [place] [address] Maco Valladares MD [address] [facility] [address] [place] [address] Other microscopic hematuria Social History Tobacco Use [...] AM EST) Final Diagnosis A. Urine, Voided, [id number]: Negative for high grade urothelial carcinoma. 09/26/2024 2:[address] [facility] Clinical Information Other microscopic hematuria R31.29 Urine cytology with reflex UroVysion (AUC/SHGUC) 09/26/2024 2:[address] [facility] Gross Description A. Urine, Voided, [id number]: Received is one ThinPrep slide for cytology. 09/26/2024 2:[address] [facility] Disclaimer Unless otherwise specified, all tissue is 10% NB formalin fixed and paraffin embedded. Technical pathology services provided by [facility] at [address], [place] [address] (CLIA #[id number]/Sa dom Rosenbaum MD, Health Equipment Servicer) 09/26/2024 2:[address] [facility] Tissue Urine specimen from urethra / Unknown 09/18/2024 09/19/2024 2:01 PM EST us Maco Valladares MD LAB PATHOLOGY ORDERABLES Fi nal Result [facility] [address] [place] [address], documented in this encounter Visit Diagnoses Diagnosis Other microscopic hematuria documented in this encounter Care Teams Senior Professional Services Consultant Relationship Specialty Start Date End Date Physician, Pcp Unknown PCP - General 09/19/24 documented as of this encounter
--- OUTSIDE RECORDS SUMMARY | 2025-02-17 10:43 | XMS_ITS | Patient Health Record ---
Author Organization [facility] Address [address] [place] [address] Care Team Providers Care Beef Ribber Name Role Phone Geo Garcia MD Primary Care Provider UnavailBrayan Russo Unavailable [phone] Reason For Referral No Information Medications Medication SIG (Take, Route, Frequency, Duration) Notes Start Date End Date Status Metoprolol Tartrate 50 MG 2 tablet Orall y Twice a day Active Losartan Potassium 100 MG 1 tablet Orall y Once a day Active MoviPrep 100 GM as directed Orally a s directed for 1 dose 03/27/2014 Active Allopurinol 100 MG 2 tablet Orally Once a day Active Clopidogrel Bisulfate 75 MG 1 tablet Ora lly Once a day Active Fish Oil 1200 MG 1 capsule Orally Twi ce a day Active Aspirin 81 MG 1 tablet Orally Once a day Active Problems Problem Type SNOMED Code ICD Code Onset Dates Problem Status W/U Status Risk Notes Problem Colon cancer screening (412146580) Colon cancer screening (V76.51) Active confirmed Problem Long-term use of aspirin therapy (V58.66) Active confirmed Encounters Encounter Location Date Provider Diagnosis [facility] [address] [place] [address] 12/10/2024 Brayan Hadley Plan Of Treatment Future Test Test Name Order Date COLONOSCOPY 03/27/2014 Next Appt Details Provider Name:Brayan Hadley , 03/25/2025 11:10:00 AM, [address], [address], [place], [address], Insurance Providers Payer Name Payer Address Payer Phone Subscriber Number Group Number Insured Name Patient Relationship to Insured Coverage Start Date Coverage End Date [address] [facility] [place] [id number] MANSI NAVARRETE Self - patient is the insured Medical (General) History Medical History History ICD Code Colonoscopy, 2003--normal to the anastomosis--sigmoid diverticulosis and internal hemorrhoids CAD--1 stent placed in the LAD in 12/2011 Gout Hypertension Denies [place],DM,CVA,Lung disease,renal dise ase Surgical History Surgery Date(Month/Year) Appendectomy for perforated appendix, then a laparotomy and right colon resection due to a postop leak 2001
--- OUTSIDE RECORDS SUMMARY | 2025-02-17 10:43 | XMS_ITS | Clinical Summary ---
Author Organization [facility] Address [address] [place] [address] Care Team Providers Care Filbert Grower Name Role Phone Geo Garcia MD Primary Care Provider [phone] Allergies No known active allergies Medications acetaminophen [...] 64 12/23/2021 1:00 PM EDT Temperature 36.2 C (97.2 F) 12/23/2021 1:00 PM EDT Respiratory Rate 18 12/23/2021 1:00 PM EDT [...] 2) 1968 Colonoscopy 1994 COVID-19 Vaccine ( season) 2024 04/11/2021, 12/01/2020, 10/18/2020 RSV Vaccine 60 years and older and Patients (1 - 1-dose 75+ series) 2024 Influenza Vaccine 02/21/2025 05/06/2021, , 04/05/2019, Additional history exists Hepatitis B Vaccines Aged Out No long er eligible based on patient's age to complete this topic Insurance [facility] Member Subscriber Plan / Payer (Ef fective 2018-Present) Name:Donavan Kim Relation to Subscriber:Self Name:Donavan Kim Payer ID:Not on file Type:Not on file Address: [place] [id number] MEDICARE PART A & B Advance Directives * Full Code (Latest Code Status on File) Date Activated Date Inactivated Comments 12/22/2021 12:37 PM Care Teams Filbert Grower Relationship Specialty Start Date End Date Geo Garcia MD [address] [place] [phone] PCP - General Internal Medicine 12/22/21
--- OUTSIDE RECORDS SUMMARY | 2025-02-17 10:43 | XMS_ITS ---
Author Name [facility] Organization Unknown Encounters Encounter Type Encounter Reason Primary Diagnosis Location Date Observation Partial loss of teeth, unspecified cause, unspecified class [facility] 12/22/2021 Care Team Organization Name Specialty Phone Email Start Date End Da te [facility] 12/22/2021 03/11/2024 [facility] 12/22/2021 12/22/2021
== END ==
LOC: HO.CARD 09:46
PROVIDERS: PCP Internal Medicine; Visit Provider Internal Medicine
DX: I44.1 Atrioventricular block, second degree (principal); Z95.1 Presence of aortocoronary bypass graft
CPT/HCPCS: 93242; 93306; Q9957

== ENCOUNTER → 2025-02-17 09:49 | Outpatient (BNV) | payer MEDICARE, OTHER, SELFPAY ==
[2021-01-12 08:55] VITALS: BMI 27.5
[2021-03-16 11:20] VITALS: BP 138/70
== END ==
PROVIDERS: PCP Internal Medicine; Visit Provider Internal Medicine Cardiovascular Disease
DX: Z95.1 Presence of aortocoronary bypass graft (principal); I51.89 Other ill-defined heart diseases; I35.1 Nonrheumatic aortic (valve) insufficiency; I34.0 Nonrheumatic mitral (valve) insufficiency
CPT/HCPCS: 93306

== ENCOUNTER 2025-03-27 12:35 | Outpatient (AMB) | payer MEDICARE, OTHER, SELFPAY ==
[2021-01-12 08:55] VITALS: BMI 27.5
[2021-03-16 11:20] VITALS: BP 138/70
--- OUTSIDE RECORDS SUMMARY | 2025-03-25 07:10 | XMS_ITS ---
Author Organization [facility] Address [address] [place] [id number] Care Team Providers Care Rn Call Center Name Role Phone Geo Garcia MD Primary Care Provider Brayan Layne Unavailable [phone] Allergies No Known Allergies REASON FOR VISIT Patient presents today for a colon screening Medications Medication SIG (Take, Route, Frequency, Duration) Notes Start Date End Date Status metFORMIN HCl 500 MG 1 tablet with a monica l Orally TWICE a day for 30 days 03/25/2025 Active Brukinsa 80 MG Oral for 30 Days Active Valsartan 80 MG 1 tablet Orally Once a day for 30 day(s) 03/25/2025 Active Eliquis 5 MG as directed Oral TWI CE A DAY for 30 days Active Pantoprazole Sodium 40 MG Oral for 90 Days Active Famotidine 20 MG 1 tablet Orally TWIC E a day Not-Taking Atorvastatin Calcium 80 MG 1 tablet Orally Once a day Active Tamsulosin HCl 0.4 MG TAKE 1 CAPSULE BY MOUTH EVERYDAY AT BEDTIME Oral for 90 Days Active Fish Oil 1200 MG 1 capsule Orally Twi ce a day Active Allopurinol 100 MG 2 tablet Orally Once a day Active Metoprolol Succinate 50 MG 3 capsule Orally Once a day Active Vitamin B12 100 MCG as directed Orally Active Multivitamin - 1 tablet Orally Once a day Active Problems Problem Type SNOMED Code ICD Code Onset Dates Problem Status W/U Status Risk Notes Problem Gastroesophageal reflux disease (797333620) GERD (gastroesopha geal reflux disease) (K21.9) Active confirmed Problem Colon cancer screening (662864656) Colon cancer screening (Z12.11) Active confirmed Problem Long-term current use of antithrombotic (624615476205422) MCC (current) use of antithromboti cs/antiplatel ets (Z79.02) Active confirmed Vital Signs Blood pressure systolic 111 mm Hg 03/25/20 25 Blood pressure diastolic 77 mm Hg 025 Height 68.75 in 03/25/2025 Weight 198 lbs 03/25/2025 BMI 29.45 kg/m2 03/25/2025 Procedures Procedure Date Ordered Date Performed Result Body Sit e COLONOSCOPY 03/25/2025 N/A Encounters Encounter Location Date Provider Diagnosis [facility] [address] [place] [address] 03/25/2025 Brayan Hadley GERD (gastroesophageal reflux disease) K21.9 ; Colon cancer screening Z12.11 and MCC (current) use of antithrombotics/anti platelets Z79.02 Assessments Encounter Date Diagnosis (ICD Code) Assessment Notes Treatment Notes Treatment Clinical Notes Section Notes 03/25/2025 GERD (gastroesophag eal reflux disease) (ICD-10 - K21.9) Overall, Mansi appears well and is not having any new or worrisome GI complaints. Given his age and good clinical appearance, and his last colonoscopy being over 10 years ago, I did recommend a follow-up colonoscopy for further screening purposes. We did review the rationale for that in regard to colon cancer prevention. Full consent is obtained for this, including risks of bleeding and perforation. The procedure will be done with monitored anesthesia care. He was given the below instructions regarding adjustment of his medications for the procedure. Mansi was comfortable with this plan. Thank you again for allowing me to participate in Mansi's care. I shall continue to keep you advised of his progress. 03/25/2025 Colon cancer screening (ICD-10 - Z12.11) Overall, Mansi appears well and is not having any new or worrisome GI complaints. Given his age and good clinical appearance, and his last colonoscopy being over 10 years ago, I did recommend a follow-up colonoscopy for further screening purposes. We did review the rationale for that in regard to colon cancer prevention. Full consent is obtained for this, including risks of bleeding and perforation. The procedure will be done with monitored anesthesia care. He was given the below instructions regarding adjustment of his medications for the procedure. Mansi was comfortable with this plan. Thank you again for allowing me to participate in Mansi's care. I shall continue to keep you advised of his progress. 03/25/2025 ferry terminal agent (current) use of antithrombotic s/antiplatelet s (ICD-10 - Z79.02) Overall, Mansi appears well and is not having any new or worrisome GI complaints. Given his age and good clinical appearance, and his last colonoscopy being over 10 years ago, I did recommend a follow-up colonoscopy for further screening purposes. We did review the rationale for that in regard to colon cancer prevention. Full consent is obtained for this, including risks of bleeding and perforation. The procedure will be done with monitored anesthesia care. He was given the below instructions regarding adjustment of his medications for the procedure. Mansi was comfortable with this plan. Thank you again for allowing me to participate in Mansi's care. I shall continue to keep you advised of his progress. Plan Of Treatment Pending Test Test Name Order Date COLONOSCOPY 03/25/2025 Next Appt Details Provider Name:Brayan Hadley , 06/18/2025 09:40:00 AM, [address] [place] [address], [id number], Progress Notes * MANSI NAVARRETE IIIDOB:[birth year] (74 yo M)Acc No.[id number]:03/25/2025 Progress Notes Patient: MANSI CORDOVA III Provider: Eber Hadley MD :1950 A ge:74 Y S ex:Male Date:03/25/2025 Address:[address] [place], [place] [id number] Pcp:Geo Garcia MD Subjective: * Chief Complaints: * 1 . Patient presents today for a colon screening. * HPI: i ncontinence: I saw Mansi in the office today for evaluation of colorectal cancer screening. I last saw Mansi in 2013, at which time he underwent a screening colonoscopy that was negative for any polyps. He reports that he presently feels well from a GI standpoint. He describes that his bowel movements have been regular for the most part although he does have occasional episodes of diarrhea. He has not noticed any hematochezia or melena. He denies abdominal pain, jaundice, nor unintentional weight loss. He describes that he was seen by [facility] at some point and started on pantoprazole for reflux with good relief. He cannot recall as to whether or not he had an upper endoscopy with them. He denies any ongoing issues with heartburn, dysphagia, anorexia, early satiety, nausea, or vomiting. He presently is seeing Dr. Sultana at [facility] for an underlying lymphoma which appears to be quite stable. * Medical History: C olonoscopy, 2003--normal to the anastomosis--sigmoid diverticulosis and internal hemorrhoids, CAD--1 stent placed in the LAD in 12/2011- Dr. Dockery, Gout, Hypertension, Denies HI,CVA,Lung disease,renal disease, Afib, Anemia h/o transfusion, Prostate cancer--being monitored--treated with hormone injections--Dr. Valladares, Gout, Coronary artery disease, Low grade B cell lymphoma--Dr. Sultana-, Negative screening colonoscopy in 2013, GERD--started on a PPI by [facility]--can't recall if he had an EGD, NIDDM. * Surgical History: A ppendectomy for perforated appendix, then a laparotomy and right colon resection due to a postop leak 2001, 3V CABG 2020, Tonsillectomy , Vasectomy . * Family History: F ather: , diagnosed with Heart disease. M other: , diagnosed with Diabetes, HTN (hypertension). No family history of colon cancer, inflammatory bowel disease, nor colon polyps. * Social History: T obacco Use: T obacco Use/Smoking A re you a: nonsmoker. D rugs/Alcohol: A lcohol Screen P oints: 1, Interpretation: Negative. M iscellaneous: M arital status: . 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 N onsmoker; no sig. alcohol. * Medications: T aking Multivitamin - Tablet 1 tablet Orally Once a day , Taking Vitamin B12 100 MCG Tablet as directed Orally , Taking Metoprolol Succinate 50 MG Capsule ER 24 Hour Sprinkle 3 capsule Orally Once a day , Taking Atorvastatin Calcium 80 MG Tablet 1 tablet Orally Once a day , Taking Allopurinol 100 MG Tablet 2 tablet Orally Once a day , Taking Fish Oil 1200 MG Capsule 1 capsule Orally Twice a day , Taking Tamsulosin HCl 0.4 MG Capsule TAKE 1 CAPSULE BY MOUTH EVERYDAY AT BEDTIME Oral , Taking Brukinsa 80 MG Capsule Oral , Taking Pantoprazole Sodium 40 MG Tablet Delayed Release Oral , Taking Eliquis 5 MG Tablet as directed Oral TWICE A DAY , Taking Valsartan 80 MG Tablet 1 tablet Orally Once a day , Taking metFORMIN HCl 500 MG Tablet 1 tablet with a meal Orally TWICE a day , Not-Taking/PRN Famotidine 20 MG Tablet 1 tablet Orally TWICE a day , Discontinued Losartan Potassium 100 MG Tablet 1 tablet Orally Once a day , Discontinued Metoprolol Tartrate 50 MG Tablet 2 tablet Orally Twice a day , Discontinued Clopidogrel Bisulfate 75 MG Tablet 1 tablet Orally Once a day , Discontinued Aspirin 81 MG Tablet 1 tablet Orally Once a day , Discontinued MoviPrep 100 GM Solution as directed Orally as directed , Medication List reviewed and reconciled with the patient * Allergies: N .K.D.A. Objective: * Vitals: W t:198lbs, Ht: 68.75 in, BMI:29.45Index, BP:111/77mm Hg, Wt-k.81. Assessment: * Assessment: 1. G ERD (gastroesophageal reflux disease) - K21.9 (Primary) 2 . C olon cancer screening - Z12.11 3 . L clinton term (current) use of antithrombotics/antiplatelets - Z79.02 Overall, Mansi appears well and is not having any new or worrisome GI complaints. Given his age and good clinical appearance, and his last colonoscopy being over 10 years ago, I did recommend a follow-up colonoscopy for further screening purposes. We did review the rationale for that in regard to colon cancer prevention. Full consent is obtained for this, including risks of bleeding and perforation. The procedure will be done with monitored anesthesia care. He was given the below instructions regarding adjustment of his medications for the procedure. Mansi was comfortable with this plan. Thank you again for allowing me to participate in Mansi's care. I shall continue to keep you advised of his progress. Plan: * Treatment: * Procedure Codes: 4 5378 DIAGNOSTIC COLONOSCOPY * Preventive Medicine: Counseling: C are goal follow-up plan: A monica Normal BMI Follow-up G iving encouragement to exercise, B HI management provided Y karrie. Screenings: F all Risk Screening F all Risk Assessment: N o falls in the past year, S creening: N o falls in the past year, P keagan of Care: N ot documented, no reason specified. * * The named appointment provid er may or may not be the originator of this progress note, and it is not deemed complete until electronically signed by the appointment provider. Sign off status: Pending * Provider: Eber Hadley MD Date: 03/25/2025 Generated for Lorraine huang/Helena/Gely on: 03/27/2025 01:52 PM EDT History and Physical Notes * HPI (History of Present Illness) Category Sub-Category Detail Notes Category Not es incontinence I saw Mansi in the office today for evaluation of colorectal cancer screening. I last saw Mansi in 2013, at which time he underwent a screening colonoscopy that was negative for any polyps. He reports that he presently feels well from a GI standpoint. He describes that his bowel movements have been regular for the most part although he does have occasional episodes of diarrhea. He has not noticed any hematochezia or melena. He denies abdominal pain, jaundice, nor unintentional weight loss. He describes that he was seen by [facility] at some point and started on pantoprazole for reflux with good relief. He cannot recall as to whether or not he had an upper endoscopy with them. He denies any ongoing issues with heartburn, dysphagia, anorexia, early satiety, nausea, or vomiting. He presently is seeing Dr. Sultana at [facility] for an underlying lymphoma which appears to be quite stable.
--- NOTE | 2025-03-27 12:45 | A.OFFVIS_ITS ---
Vital Signs 03/27/25 12:46 Height 5 ft 10 in Weight 196 lb 3.382 oz BMI 28.2 BP 118/60 Blood Pressure Location Lt brachial Position Sitting Pulse 65 Pulse Source Pulse Oximeter Intake Visit Reasons: 3 mth s/p echo/ holter Allergies No Known Allergies Allergy (Mild, Verified 04/11/23 10:31) NOT APPLICABLE Medication List - Last Reconciled 03/27/25 by Addi Dockery MD allopurinol 200 mg PO DAILY apixaban 5 mg PO BID atorvastatin 80 mg PO DAILY cyanocobalamin (vitamin B-12) (Vitamin B-12) 1,000 mcg PO DAILY famotidine 20 mg PO BID metformin 500 mg PO BID metoprolol succinate ER 150 mg PO DAILY multivitamin 1 tab PO DAILY nitroglycerin mg sublingual omega-3 fatty acids (Fish Oil Concentrate) 1,000 mg PO DAILY pantoprazole 40 mg PO DAILY tamsulosin 0.4 mg PO BEDTIME valsartan 80 mg PO DAILY zanubrutinib (Brukinsa) 160 mg PO BID HPI Comments Details: Donavan returns for follow-up regarding various cardiac issues. In 2011, he had ST elevation myocardial infarction. Cardiac catheterization then revealed culprit lesion in the mid LAD requiring stenting. In 2019, he had SVT with left bundle-branch block. Beta-celso was dose increased. Then another hospitalization when he was thought to have atrial fibrillation. Then started Eliquis. 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 Then underwent chemotherapy. Then, had anginal-type symptoms that led to yet another cardiac catheterization and then CABG. Then, got diagnosed with prostate cancer and started seeing urology. In spite of all the above issues, he is actually doing well these days. No new concerns. He has actually been stable over the last year or 2. [facility] Medical History (Updated 04/11/23 @ 10:54 by Addi Dockery MD) Prostate cancer Idiopathic hypotension Monoclonal gammopathy Hyperlipidemia, unspecified Essential hypertension PAF (paroxysmal atrial fibrillation) SVT (supraventricular tachycardia) Left bundle branch block Atherosclerotic cardiovascular disease Surgical History Status post coronary artery bypass graft History of coronary angioplasty History of tonsillectomy History of appendectomy Family History Father CVD (cardiovascular disease) Mother Diabetes Social History Patient Tobacco Use Status: Never used Tobacco Second Hand Smoke Exposure: Yes Review of Systems Const Denies weakness ENT Denies dizziness Card Denies chest pain, Denies chest pain with activity, Denies syncope, Denies rapid heart rate, Denies pedal edema, Denies edema, Denies leg edema, Denies lightheadedness, Denies palpitations, Denies dyspnea, Denies dyspnea on exertion and Denies orthopnea Resp Denies cough, Denies dyspnea and Denies dyspnea on exertion GI Denies hematochezia and Denies change in stool character Musc Denies abnormal gait, Denies muscle cramps, Denies muscle weakness, Denies numbness, Denies radiating pain into limb and Denies tingling Neuro Denies abnormal gait, Denies dizziness, Denies syncope, Denies numbness, Denies tingling and Denies weakness Endo Denies palpitations Physical Exam Vital Signs: Last Vital Signs Pulse 65 03/27/25 12:46 BP 118/60 03/27/25 12:46 BMI result Body Mass Index 28.2 Const General: comfortable and no acute distress Orientation/consciousness: patient oriented x3 HEENT Other: Unremarkable Head: Yes normal to inspection Neck Neck: Yes normal visual inspection Chest Chest palpation & inspection: normal inspection of the chest Resp Auscultation: clear to auscultation bilaterally Cardio Palpation: normal PMI Heart sounds: S1 normal heart sound present, S2 normal heart sound present, no gallops, no murmurs and no rubs GI Palpation (GI): Soft to palpation Back/Spine/Pelvis Other: unremarkable Skin General skin exam: no rashes or lesions noted Neuro General: patient oriented x3 Extrem General: Yes normal to inspection Psych Mental Status: mental status grossly normal Assessment & Plan Assessment & Plan (1) Atherosclerotic cardiovascular disease: Code(s): I25.10 - Atherosclerotic heart disease of [place] coronary artery without angina pectoris Category: Medical Plan: Status post CABG. He also had a mid LAD stent in 2011. No angina. Continue beta-blockers and statins. Last available LDL cholesterol is 39mg/dL. Triglycerides 74 mg/dL. (2) Left bundle branch block: Code(s): I44.7 - Left bundle-branch block, unspecified Category: Medical Plan: He has had both left bundle-branch block as well as right bundle-branch block/left posterior fascicular block in different EKGs. We will decrease the beta-celso dosing. (3) PAF (paroxysmal atrial fibrillation): Code(s): I48.0 - Paroxysmal atrial fibrillation Category: Medical Plan: He remains on beta-blockers and anticoagulation. During the time of bypass, he also underwent left atrial appendage removal and bilateral pulmonary vein isolation. No clinical recurrence recently. (4) SVT (supraventricular tachycardia): Code(s): I47.1 - Supraventricular tachycardia Category: Medical Plan: No recent issues. On beta-blockers. (5) Essential hypertension: Code(s): I10 - Essential (primary) hypertension Category: Medical Plan: Stable. Due to beta-celso dose decreased, he can monitor them. Medications: New metoprolol succinate ER (Toprol XL) 100 mg (2 x 50 mg) PO DAILY 180 tabs 3RF 90 days Coding Level of Care Code Est Pt Level 4 (81291) Complex EM visit Add On G2211 Diagnoses Atherosclerotic cardiovascular disease I25.10 Left bundle branch block I44.7 PAF (paroxysmal atrial fibrillation) I48.0 SVT (supraventricular tachycardia) I47.1 Essential hypertension I10
[2025-03-27 12:46] VITALS: BP 118/60; PULSE 65; BMI 28.2
--- OUTSIDE RECORDS SUMMARY | 2025-03-27 13:52 | XMS_ITS | Clinical Summary ---
Author Organization [address] Address [address] [place] [address] Phone Care Team Providers Care Media Law Faculty Member Name Role Phone Physician, Pcp Unknown Primary Care Provider Earline vailable Social History Tobacco Use Types Packs/Day Years [...] 1999 Zoster Vaccines (1 of 2) 1999 RSV Immunization Adult Patie nts (1 - 1-dose 75+ series) 2024 Depression Screening 07/24/2024 Abdominal Aortic Aneurysm (A AA) Screen 09/19/2024 Cholesterol Screening (Lipid Panel) 09/19/2024 Colorectal Cancer Screening: Colonoscopy 09/19/2024 Falls Risk Assessment 09/19/2024 Hepatitis C Screening 09/19/2024 Medicare Annual Wellness Visit 09/19/2024 Social Influencers of Health Screening 09/19/2024 COVID-19 Vaccine ( - 2023-2 5 season) 2025 Influenza Vaccine (#1) 2025 HIB Vaccines Aged Out No longer [...] patient's age to complete this topic Insurance MEDICARE [facility] Care Teams Media Law Faculty Member Relationship Specialty Start Date End Date Physician, Pcp Unknown PCP - General 09/19/24
--- OUTSIDE RECORDS SUMMARY | 2025-03-27 13:52 | XMS_ITS | Encounter Summary ---
Author Organization [facility] Address [address] [place] [address] Phone Care Team Providers Care Stonecutter Assistant Name Role Phone Geo Garcia MD Primary Care Provider + Encounter Details Date Type Department Care Team (Latest Contact Info) Description 10/07/2022 Transcribe Orders [facility] [address] [address] Sara Funez PA [address] [place] [address] Iron deficiency anemia secondary to blood loss (chronic) (Primary Dx) Social History Tobacco Use Types Packs/Day Years Used Date Smoking Tobacco: Never Assessed Sex and Gender Information Value Date Recorded Sex Assigned at Not on file Legal Sex Male 1:35 PM EDT Gender Identity Not on file Sexual Orientation Not on file documented as of this encounter Plan of Treatment Not on file documented as of this encounter Results * (ABNORMAL) Ferritin (10/07/2022 1:41 PM EDT) FERRITIN 595(H) 30 - 400 ug/L [facility] Blood 10/07/2022 1:41 PM EDT 10/07/2022 1:44 PM EDT us Sara SUERO LAB BLOOD ORDERABLES Edited Result - Final [facility] [address] [place] [address] * (ABNORMAL) CBC and differential (10/07/2022 1:41 PM EDT) WBC 3.75(L) 4.00 - 11.00 K/uL [facility] RBC 3.16(L) 3.90 - 5.69 M/uL [facility] HGB 8.5(L) 12.4 - 17.3 g/dL [facility] HCT 26.9(L) 37.0 - 51.0 % [facility] PLT 198 140 - 430 K/uL [facility] MCV 85.1 78.0 - 97.0 fL [facility] MCH 26.9 25.0 - 33.0 pg [facility] MCHC 31.6(L) 32.0 - 36.0 g/dL [facility] RDW 20.2(H) 11.0 - 15.0 % [facility] MPV 10.3 8.4 - 12.8 fl [facility] DIFF METHOD Auto [facility] NEUTS 67.2 43.0 - 75.0 % [facility] LYMPHS 15.2(L) 18.2 - 47.4 % [facility] MONOS 16.0(H) 4.00 - 11.00 % [facility] EOS 0.3 0.0 - 8.0 % [facility] BASOS 0.5 0.0 - 2.0 % [facility] Granulocytes, immature (%) 0.8 0.0 - 0.9 % [facility] ABSOLUTE NEUTS 2.52 1.80 - 7.70 K/uL [facility] ABSOLUTE LYMPHS 0.57(L) 1.00 - 3.10 K/uL [facility] ABSOLUTE MONOS 0.60 0.20 - 0.80 K/uL [facility] ABSOLUTE EOS 0.01 0.00 - 0.80 K/uL [facility] ABSOLUTE BASOS 0.02 0.00 - 0.09 K/uL [facility] Granulocytes, immature 0.03 0.00 - 0.05 K/uL [facility] Blood 10/07/2022 1:41 PM EDT 10/07/2022 1:44 PM EDT us Sara SUERO LAB BLOOD ORDERABLES Final Result Performing Organization Address [facility]/ZIP Co de Phone Number [address] [address] * (ABNORMAL) Iron and iron binding capacity (10/07/2022 1:41 PM EDT) Pathologist [facility] IRON 13(L) 45 - 160 ug/dL [facility] IRON BINDING CAPACITY 64(L) 228 - 428 ug/dL [facility] TRANSFERRIN SATURAT. 20 20 - 55 % [facility] Blood 10/07/2022 1:41 PM EDT 10/07/2022 1:44 PM EDT Sara SUERO LAB BLOOD ORDERABLES Final Result Performing Organization Address [facility] Co de Phone Number [address] [address] * Tissue transglutaminase IgA (10/07/2022 1:41 PM EDT) [facility] TTG IGA ANTIBODY <1.2 <4.0 (Negative) U/mL [facility] Blood 10/07/2022 1:41 PM EDT 10/07/2022 1:43 PM EDT Sara SUERO LAB BLOOD ORDERABLES Final Result Performing Organization Address [facility] Co de Phone Number [facility] [address] [place] [address] documented in this encounter Visit Diagnoses Diagnosis Iron deficiency anemia secondary to blood loss (chronic)- Primary documented in this encounter Care Teams Stonecutter Assistant Relationship Specialty Start Date End Date Geo Garcia MD PCP - General Internal Medicine 10/07/22 documented as of this encounter Additional Source Comments The information contained in this document represents components of the legal health record. It is not the complete legal health record.[facility]
--- OUTSIDE RECORDS SUMMARY | 2025-03-27 13:52 | XMS_ITS | Clinical Summary ---
Author Organization [facility] Address [address] [place] [address] Phone Care Team Providers Care Customer Services Coordinator Name Role Phone Geo Garcia MD Primary [...] file Medical Devices Not on file Insurance [facility] MEDICARE SUPPLEMENT MEDICARE PART A & B MEDICARE SUPPLEMENT MEDICARE PART A & B [facility] MEDICARE SUPPLEMENT MEDICARE PART A & B MEDICARE SUPPLEMENT MEDICARE PART A & B [facility] MEDICARE SUPPLEMENT MEDICARE PART A & B MEDICARE SUPPLEMENT MEDICARE PART A & B Care Teams Customer Services Coordinator Relationship Specialty Start Date End Date Geo Garcia MD PCP - General Internal Medicine 10/07/22 Additional Source Comments The information contained in this document represents components of the legal health record. It is not the complete legal health record.[facility]
--- OUTSIDE RECORDS SUMMARY | 2025-03-27 13:52 | XMS_ITS | Clinical Summary ---
Author Organization [facility] Address [address] [place] [address] Care Team Providers Care Director Of Mechanical Engineering Name Role Phone Geo Garcia MD Primary Care Provider [phone] Allergies No known active allergies Medications acetaminophen [...] Health Maintenance Due Date Last Done Comments Advance Care Planning 1950 Hepatitis C Virus Screening 1950 DTaP/Tdap/Td Vaccines (1 - Tdap) 1968 Colonoscopy 1994 Pneumococcal Vaccines 50+ (1 of 1 - PCV) 1999 Zoster (Shingles) Vaccine (1 of 2) 1999 COVID-19 Vaccine (4 - season) 2024 04/11/2021, 12/01/2020, 10/18/2020 RSV Vaccine 60 years and older and Patients (1 - 1-dose 75+ series) 2024 Influenza Vaccine 02/21/2025 05/06/2021, , 04/05/2019, Additional history exists Hepatitis B Vaccines Aged Out No long er eligible based on patient's age to complete this topic Insurance [facility] MEDICARE PART A & B Advance Directives * Full Code (Latest Code Status on File) Date Activated Date Inactivated Comments 12/22/2021 12:37 PM Care Teams Director Of Mechanical Engineering Relationship Specialty Start Date End Date Geo Garcia MD [address] [place] [address] PCP - General Internal Medicine 12/22/21
--- OUTSIDE RECORDS SUMMARY | 2025-03-27 13:52 | XMS_ITS | Encounter Summary ---
Author Organization [facility] Address [address] [place] [address] Care Team Providers Care Orthotist Name Role Phone Physician, Pcp Unknown Primary Care Provider Earline vailable Encounter Details Date Type Department Care Team (Late st Contact Info) Description 09/19/2024 Lab Requisition [facility] - Main Lab [address] [facility] [place] [address] Maco Valladares MD [address] [facility] [address] [place] [address] Other microscopic hematuria Social History Tobacco Use [...] AM EST) Final Diagnosis A. Urine, Voided, [id number]: Negative for high grade urothelial carcinoma. 09/26/2024 2:47 PM EST [facility] Clinical Information Other microscopic hematuria R31.29 Urine cytology with reflex UroVysion (AUC/SHGUC) 09/26/2024 2:47 PM EST [facility] Gross Description A. Urine, Voided, [id number]: Received is one ThinPrep slide for cytology. 09/26/2024 2:47 PM EST [facility] Disclaimer Unless otherwise specified, all tissue is 10% NB formalin fixed and paraffin embedded. Technical pathology services provided by [facility] at [address] [facility] [address], [place] [address] (CLIA #[id number]/Sa dom Rosenbaum MD, Batch Trucker) 09/26/2024 2:47 PM EST [facility] Tissue Urine specimen from urethra / Unknown 09/18/2024 09/19/2024 2:01 PM EST us Maco Valladares MD LAB PATHOLOGY ORDERABLES Fi nal Result [facility] [address] [place] [address], documented in this encounter Visit Diagnoses Diagnosis Other microscopic hematuria documented in this encounter Care Teams Orthotist Relationship Specialty Start Date End Date Physician, Pcp Unknown PCP - General 09/19/24 documented as of this encounter
--- OUTSIDE RECORDS SUMMARY | 2025-03-27 13:53 | XMS_ITS | Patient Health Record ---
Author Organization [facility] Address [address] [place] [id number] Care Team Providers Care Digital Associate Name Role Phone Geo Garcia MD Primary Care Provider UnavailBrayan Russo Unavailable [phone] Allergies No Known Allergies Reason For Referral No Information Medications Medication SIG (Take, Route, Frequency, Duration) Notes Start Date End Date Status Famotidine 20 MG 1 tablet Orally TWIC E a day Not-Taking Atorvastatin Calcium 80 MG 1 tablet Orally Once a day Active Metoprolol Succinate 50 MG 3 capsule Orally Once a day Active metFORMIN HCl 500 MG 1 tablet with a monica l Orally TWICE a day for 30 days 03/25/2025 Active Brukinsa 80 MG Oral for 30 Days Active Tamsulosin HCl 0.4 MG TAKE 1 CAPSULE BY MOUTH EVERYDAY AT BEDTIME Oral for 90 Days Active Fish Oil 1200 MG 1 capsule Orally Twi ce a day Active Allopurinol 100 MG 2 tablet Orally Once a day Active Vitamin B12 100 MCG as directed Orally Active Multivitamin - 1 tablet Orally Once a day Active Valsartan 80 MG 1 tablet Orally Once a day for 30 day(s) 03/25/2025 Active Eliquis 5 MG as directed Oral TWI CE A DAY for 30 days Active Pantoprazole Sodium 40 MG Oral for 90 Days Active Problems Problem Type SNOMED Code ICD Code Onset Dates Problem Status W/U Status Risk Notes Problem Colon cancer screening (397718528) Colon cancer screening (V76.51) Active confirmed Problem Long-term use of aspirin therapy (V58.66) Active confirmed Problem Colon cancer screening (186292168) Colon cancer screening (Z12.11) Active confirmed Problem Long-term current use of antithrombotic (895480257450878) MCC (current) use of antithromboti cs/antiplatel ets (Z79.02) Active confirmed Problem Gastroesophageal reflux disease (987088830) GERD (gastroesopha geal reflux disease) (K21.9) Active confirmed Vital Signs Blood pressure diastolic 77 mm Hg 03/25/2025 Height 68.75 in 03/25/2025 Blood pressure systolic 111 mm Hg 03/25/2025 Weight 198 lbs 03/25/2025 BMI 29.45 kg/m2 03/25/2025 Procedures Procedure Date Ordered Date Performed Result Body Sit e COLONOSCOPY 03/25/2025 N/A Encounters Encounter Location Date Provider Diagnosis [facility] [address] [place] [phone] 03/25/2025 Brayan Hadley GERD (gastroesophageal reflux disease) K21.9 ; Colon cancer screening Z12.11 and MCC (current) use of antithrombotics/anti platelets Z79.02 [facility] [address] [place] [phone] 12/10/2024 Brayan Hadley Assessments Encounter Date Diagnosis (ICD Code) Assessment Notes Treatment Notes Treatment Clinical Notes Section Notes 03/25/2025 Colon cancer screening (ICD-10 - Z12.11) [...] keep you advised of his progress. 03/25/2025 GERD (gastroesophag eal reflux disease) (ICD-10 [...] keep you advised of his progress. 03/25/2025 MCC (current) use of antithrombotic s/antiplatelet s (ICD-10 [...] Test Test Name Order Date COLONOSCOPY 03/25/2025 Future Test Test Name Order Date COLONOSCOPY 03/27/2014 Next Appt Details Provider Name:Brayan Hadley , 06/18/2025 09:40:00 AM, [address] [place] [address] , [place], [place], [id number], Insurance Providers Payer Name Payer Address Payer Phone Subscriber Number Group Number Insured Name Patient Relationship to Insured Coverage Start Date Coverage End Date MEDICARE OF [place] [address] [place] [id number] MANSI NAVARRETE Self - patient is the insured [address] [place] [address] [address] [place] [address] [id number] MANSI NAVARRETE Self - patient is the insured 2 Medical (General) History Medical History History ICD Code Colonoscopy, 2003--normal to the anastomosis--sigmoid diverticulosis and internal hemorrhoids CAD--1 stent placed in the LAD in 12/2011 - Dr. Dockery Gout Hypertension Denies OK,CVA,Lung disease,renal disease Afib Anemia h/o transfusion Prostate cancer--being monit ored--treated with hormone injections--Dr. Valladares Gout Coronary artery disease Low grade B cell lymphoma--Dr. Sultana - Negative screening colonoscopy in 2013 GERD--started on a PPI by [facility] --can't recall if he had an EGD NIDDM Surgical History Surgery Date(Month/Year) Vasectomy Tonsillectomy 3V CABG 2020 Appendectomy for perforated appendix, then a laparotomy and right colon resection due to a postop leak 2001
== END 2025-03-27 13:10 | disposition home or self-care (01) ==
LOC: HO.HCS 12:36
PROVIDERS: PCP Internal Medicine; Visit Provider Internal Medicine
DX: I25.10 Atherosclerotic heart disease of native coronary artery without angina pectoris (principal); I44.7 Left bundle-branch block, unspecified; I48.0 Paroxysmal atrial fibrillation; I47.10 Supraventricular tachycardia, unspecified; I10 Essential (primary) hypertension
CPT/HCPCS: 99214; G2211

== ENCOUNTER → 2025-03-27 12:35 | Outpatient (BNVA) | payer MEDICARE, OTHER, SELFPAY | PROVIDERS: PCP Internal Medicine; Visit Provider Internal Medicine | DX: I25.10 Atherosclerotic heart disease of native coronary artery without angina pectoris (principal); I44.7 Left bundle-branch block, unspecified; I48.0 Paroxysmal atrial fibrillation; I10 Essential (primary) hypertension; I47.10 Supraventricular tachycardia, unspecified | CPT/HCPCS: 99212 ==

== ENCOUNTER 2025-06-18 08:32 | Day surgery (SDC) | payer MEDICARE, OTHER, SELFPAY ==
[2025-06-16 13:37] VITALS: BMI 29.4
[2025-06-18 08:58] VITALS: BP 144/85; PULSE 71; RESP 16; TEMP 36.3; O2SAT 98
--- NOTE | 2025-06-18 08:58 | HO.ANESPROP2 ---
[facility] Active Problems Active Problems: All Active Problems (Updated 06/16/25 @ 13:28 by Mariposa Booker RN) Anemia (Acute) PVC (premature ventricular contraction) (Acute) Angina pectoris (Acute) Essential hypertension (Acute) Status post coronary artery bypass graft (Acute 2020) Idiopathic hypotension (Acute) PAF (paroxysmal atrial fibrillation) (Acute) SVT (supraventricular tachycardia) (Acute) Left bundle branch block (Acute) Atherosclerotic cardiovascular disease (Acute) Past Medical History Medical History Diabetes Low grade B-cell lymphoma Prostate cancer History of blood transfusion History of anemia Gout Hx of coronary artery disease Prostate cancer Idiopathic hypotension Monoclonal gammopathy Hyperlipidemia, unspecified Essential hypertension PAF (paroxysmal atrial fibrillation) SVT (supraventricular tachycardia) Left bundle branch block Atherosclerotic cardiovascular disease Functional capacity: independent ambulation Family History Family History Father CVD (cardiovascular disease) Mother Diabetes Family history of problems with anesthesia: No Surgical History Surgical History Hx of vasectomy Hx of colonoscopy (2013) Status post coronary artery bypass graft (2020) History of coronary angioplasty History of tonsillectomy History of appendectomy (2001) History of Problems with Anesthesia: No Social History Social History Patient Tobacco Use Status: Never used Tobacco Second Hand Smoke Exposure: Yes Use of substances other than those prescribed or required for medical reasons: No Are you DNR?: No Advance Directives: No Advance Directives Information Provided: Yes Meds Allergies Allergy/AdvReac Type Severity Reaction Status Date / Time No Known Allergies Allergy Mild NOT Verified 04/11/23 10:31 APPLICABLE Active Medications: Current Medications Sodium Biphosphate/Sodium Phosphate (Sodium Phosphate,Tyrrell-Dibasic 133 Ml Enema) 133 ml IA ONCE PRN PRN Reason: Poor Colonoscopy Prep Results Home Medications ?Medication ?Instructions ?Recorded ?Confirmed ?Last Taken ?Type allopurinol 100 mg tablet 200 mg PO DAILY 06/16/20 06/16/25 Unknown History apixaban 5 mg tablet 5 mg PO BID 06/16/20 06/16/25 Unknown History atorvastatin 80 mg tablet 80 mg PO DAILY 06/16/20 06/16/25 Unknown History nitroglycerin 0.4 mg sublingual mg sublingual 06/16/20 03/27/25 Unknown History tablet tamsulosin 0.4 mg capsule 0.4 mg PO BEDTIME 06/16/20 06/16/25 Unknown History multivitamin 1 tab PO DAILY 12/03/20 06/16/25 Unknown History omega-3 fatty acids 1,000 mg 1,000 mg PO DAILY 12/03/20 06/16/25 Unknown History capsule (Fish Oil Concentrate) cyanocobalamin (vitamin B-12) 1,000 mcg PO DAILY 09/22/22 06/16/25 Unknown History 1,000 mcg tablet (Vitamin B-12) metformin 500 mg tablet 500 mg PO BID 04/11/23 06/16/25 Unknown History pantoprazole 40 mg tablet,delayed 40 mg PO DAILY 04/11/23 06/16/25 Unknown History release zanubrutinib 80 mg capsule 160 mg PO BID 04/11/23 06/16/25 Unknown History (Brukinsa) valsartan 80 mg tablet 80 mg PO DAILY 12/09/24 06/16/25 Unknown History Exam Exam Date and Time: 06/18/25 Height,Weight and Vital Signs: Height 5 ft 8.75 in Weight 91.626 kg Airway TM Dist: >3cm Neck ROM: Full Denture: Upper Partial: Upper Heart: normal Lungs: normal Other: normal Assessment and Plan Final Anesthetic Review Family History of Problems with Anesthesia: No History of Problems with Anesthesia: No NPO: Yes ASA Class: II and III Final Preanesthetic Review: No Changes in Pt Med Stat, Meds/Allgs Chart Reviewed, Anes Risks/Benef Reviewed and DNR Form (If Appl.) Patient Risk: Low Procedure Risk: Low Anesthetic Plan Anesthetic Plan: MAC: Disposition: Standard PACU
[2025-06-18 09:12] LABS: Glucose, Whole Blood 158 mg/dL (60-115)
[2025-06-18] MEDS: Lactated Ringers 1,000 ML 50 ML IVCONT (09:20)
[2025-06-18 11:09] VITALS: BP 102/56; PULSE 70; RESP 16; TEMP 36.7; O2SAT 98
--- NOTE | 2025-06-18 11:13 | PM.OP ---
Brief Operative Note Date of Service: 06/18/25 Pre-op diagnosis: Screening Post-op diagnosis: other (Polyps) Procedure: Colonoscopy to the anastomosis and SI with bx/removal of polyps, and cold snare polypectomy x 1 with placement of 1 Resolution clip Surgeon: Brayan Hadley MD Anesthesia: MAC Was an General Education Instructor used for this Procedure?: No Estimated blood loss (mL): 2.0 Pathology: other (A. Polyp just distal to the anastomosis B. Transverse colon polyp C. Polyp at 50cm) Condition: stable Disposition: PACU
[2025-06-18 11:24] VITALS: BP 117/63; PULSE 53; RESP 16; O2SAT 98
[2025-06-18 11:35] VITALS: BP 137/73; PULSE 64; RESP 15; TEMP 36.8; O2SAT 98
--- NOTE | 2025-06-18 11:47 | OP_ITS ---
DATE OF SERVICE: 06/18/2025 SURGEON: Brayan Hadley MD INDICATIONS: The patient presents for evaluation of colorectal cancer screening. Full consent has been obtained from him for this, including risks of bleeding and perforation. PREOPERATIVE DIAGNOSIS: Colorectal cancer screening. POSTOPERATIVE DIAGNOSIS: PROCEDURE PERFORMED: ESTIMATED BLOOD LOSS: COMPLICATIONS: ANESTHESIA: Medication used, monitored anesthesia care. ASSISTANTS: SPECIMENS: POSTOPERATIVE DIAGNOSES: Colorectal cancer screening, colon polyps, diverticulosis, and internal hemorrhoids. PROCEDURES PERFORMED: Colonoscopy to the anastomosis and small bowel with biopsy and removal of polyps, and cold snare polypectomy with placement of 1 resolution clip. DESCRIPTION OF PROCEDURE: The patient was placed in the left lateral decubitus position. The digital rectal exam revealed no abnormalities. The Olympus video pediatric colonoscope was entered into the rectum and advanced easily to the region of the anastomosis. The anastomosis appeared normal. The small bowel was cannulated and appeared normal. The scope was withdrawn back in the colon. The entire anastomosis appeared normal. Just distal to the anastomosis was a flat, approximately 4 mm polyp, which was biopsied and completely removed with a cold biopsy forceps. There was no significant bleeding. The scope was slowly withdrawn assessing all mucosal surfaces carefully. Preparation was excellent. In the transverse colon was a flat, approximately 5 mm polyp, which was biopsied and completely removed with a cold biopsy forceps. There was no significant bleeding. At 50 cm was an approximately 6 to 8 mm flat, but raised polyp, which was removed by cold snare polypectomy and recovered by suction. The polypectomy site appeared clean, without any sign of residual polyp nor significant bleeding. A single resolution clip was applied to the polypectomy site with good deployment and good hemostasis. I did not visualize any other polyps, colitis, or angiodysplasia. There was a mild amount of sigmoid diverticulosis. In the rectum, scope was retroflexed visualizing internal hemorrhoids, but no other pathology. The rectal mucosa appeared normal. The scope was straightened and withdrawn from the patient. He tolerated the procedure well and was returned to the recovery area in stable condition. IMPRESSION: 1. Colon polyps. 2. Diverticulosis. 3. Internal hemorrhoids. PLAN: The results of the pathology will be checked. Given these findings and his age, I do not think he would need any further screening colonoscopies. He was advised to resume his Eliquis in 48 hours. He was advised not to use any aspirin, NSAIDs, nor fish oil for 1 week. He was advised to stay off all aspirin and NSAIDs long-term in general given that he is on Eliquis. He will see me on a p.r.n. basis. MD MEGAN Leija/IRENE / [phone] MTDD
== END 2025-06-18 12:02 | disposition home or self-care (01) ==
PROVIDERS: PCP Internal Medicine; Visit Provider Internal Medicine
PROC: 0DJD8ZZ Inspection of Lower Intestinal Tract, Via Natural or Artificial Opening Endoscopic (ICD-10-PCS; CPT 45378; principal; 2025-06-18 09:40)
DX: Z12.11 Encounter for screening for malignant neoplasm of colon (principal); D12.3 Benign neoplasm of transverse colon; D12.5 Benign neoplasm of sigmoid colon; K57.30 Diverticulosis of large intestine without perforation or abscess without bleeding; K64.8 Other hemorrhoids; Z98.0 Intestinal bypass and anastomosis status; K21.9 Gastro-esophageal reflux disease without esophagitis; C85.10 Unspecified B-cell lymphoma, unspecified site; I25.10 Atherosclerotic heart disease of native coronary artery without angina pectoris; Z95.1 Presence of aortocoronary bypass graft; I10 Essential (primary) hypertension; I48.0 Paroxysmal atrial fibrillation; C61 Malignant neoplasm of prostate; E11.9 Type 2 diabetes mellitus without complications; D64.9 Anemia, unspecified; Z98.52 Vasectomy status; Z79.01 Long term (current) use of anticoagulants; Z79.02 Long term (current) use of antithrombotics/antiplatelets; Z79.84 Long term (current) use of oral hypoglycemic drugs; Z79.899 Other long term (current) drug therapy
CPT/HCPCS: 45385; 45380; 82947; 88305; J2003; J2704; J3010